=== PATIENT | female | born 1990 | race Caucasian/White ===

== ENCOUNTER 2018-06-06 02:49 | Emergency (ER) | payer OTHER, SELFPAY ==
[2018-06-06 02:54] VITALS: BP 142/93; PULSE 96; RESP 18; TEMP 36.5; O2SAT 96
--- NOTE | 2018-06-06 02:58 | ED.SOB ---
HPI - SOB/Dyspnea General Chief Complaint: Shortness of Breath/Dyspnea Stated Complaint: CANT BREATHE Time Seen by Provider: 06/06/18 02:49 Source: patient Mode of arrival: ambulatory Limitations: no limitations History of Present Illness 27-year-old female with a history of asthma who states she has not been admitted to the hospital secondary to asthma since she was a kid states she has had for the past couple days upper respiratory tract infection like symptoms. She states that for the past day or so she has had problems breathing. Has been using her albuterol at home without much improvement here because she feels like her breathing is worsening. Related Data Home Medications Medication Instructions Recorded Confirmed oxycodone-acetaminophen #0 01/16/18 Previous Rx's Medication Instructions Recorded azithromycin [Zithromax] 250 mg PO SEE INSTRUCTIONS #6 tab 07/14/16 omeprazole 40 mg PO QAM #14 cap 03/05/17 dexamethasone 4 mg PO .once #3 tab 06/06/18 Allergies Allergy/AdvReac Type Severity Reaction Status Date / Time amoxicillin [AMOXICILLIN] Allergy Intermediate Verified 06/06/18 02:59 Review of Systems Constitutional Denies fever(s) ENT Ears, Nose, Mouth, and Throat: Denies throat swelling Cardiovascular Denies chest pain and Reports dyspnea Respiratory Reports cough, Reports dyspnea and Reports wheezing Gastrointestinal Gastrointestinal: Denies abdominal pain Musculoskeletal Denies myalgias and Denies arthralgias Integumentary/Breasts Denies rash Allergic/Immunologic Denies urticaria, Denies throat swelling and Reports wheezing PFSH Medical History Asthma (Acute) Surgical History No pertinent past surgical history (Acute) Social History Smoking Status: Never smoker Exam Initial Vital Signs Initial Vital Signs: Vital Signs Temperature 97.7 F 06/06/18 02:54 Pulse Rate 96 H 06/06/18 02:54 Respiratory Rate 18 06/06/18 02:54 Blood Pressure 142/93 H 06/06/18 02:54 Pulse Oximetry 96 06/06/18 02:54 Const General: cooperative, healthy appearing, comfortable, well developed, well groomed and No acute distress Orientation: alert, awake and oriented x3 Resp Effort & Inspection: cough and labored Auscultation: wheezes Cardio Rate: regular rate Rhythm: regular rhythm Skin Lesions: no lesions Rashes: no rashes Neuro General: alert, awake and oriented x3 Extrem General: normal to inspection and capillary refill normal Psych Appearance: grossly normal and well kempt Course Orders Ordered: Discontinued Medications Albuterol/Ipratropium (Duoneb) 3 ml INH NOW ONE Stop: 06/06/18 02:54 Last Admin: 06/06/18 03:09 Dose: 3 ml Albuterol/Ipratropium (Duoneb) 3 ml INH NOW ONE Stop: 06/06/18 02:54 Last Admin: 06/06/18 03:09 Dose: 3 ml Albuterol/Ipratropium (Duoneb) 3 ml INH NOW ONE Stop: 06/06/18 03:37 Last Admin: 06/06/18 03:41 Dose: 3 ml Dexamethasone (Decadron) 10 mg PO NOW ONE Stop: 06/06/18 02:54 Last Admin: 06/06/18 03:04 Dose: 10 mg Vital Signs - 8 hr 06/06/18 02:54 06/06/18 03:26 Temperature 97.7 F Pulse Rate 96 H 89 Respiratory Rate 18 16 Blood Pressure 142/93 H Pulse Oximetry 96 94 MDM - SOB/Dyspnea MDM Narrative Medical decision making narrative: Patient received multiple nebs and Decadron here in the emergency department with improvement of her symptoms. Will hold on her chest x-ray. Patient states she feels much better. She has her albuterol at home and does not need any refills. Will give another prescription for Decadron to taking 36 hr. She was given return precautions. She expressed understanding and agreement with plan. Discharge Plan Departure Patient Disposition: Home Clinical Impression: Asthma with exacerbation Instructions: Asthma (Alternative Therapy), Asthma -- Adult Activity Restrictions/Additional Instructions: Continue to take your allergy medications as directed. You were given a prescription for Decadron that needs to be taken 36 hr after discharge from the emergency department. Return to the emergency department for any new or worsening symptoms Prescriptions: New dexamethasone 4 mg tablet 4 mg PO .once Qty: 3 RF: 0 No Action azithromycin [Zithromax] 250 MG tablet 250 mg PO SEE INSTRUCTIONS Qty: 6 RF: 0 omeprazole 40 MG capsule,delayed release(DR/EC) 40 mg PO QAM Qty: 14 RF: 0 oxycodone-acetaminophen 7.5 MG/325 MG tablet Qty: 0 RF: 0
[2018-06-06] MEDS: DEXAMETHASONE 10 MG/ML VIAL PO (03:04)
[2018-06-06] MEDS: ALBUTEROL/IPRATROPIUM 3 ML AMPUL INH ×3 (03:09→03:41)
[2018-06-06 03:26] VITALS: PULSE 89; RESP 16; O2SAT 94
[2018-06-06 04:05] VITALS: BP 139/78; PULSE 98; RESP 18; O2SAT 96
[2018-06-06 05:20] VITALS: BP 134/74; PULSE 92; RESP 18; TEMP 36.6; O2SAT 95
--- NOTE | 2018-06-06 05:21 | PC.NURSE ---
FEELS BETTER,WANTS TO GO HOME.
== END 2018-06-06 05:20 | disposition home or self-care (01) ==
PROVIDERS: Emergency Provider Emergency Medicine
DX: J45.909 Unspecified asthma, uncomplicated (principal)
CPT/HCPCS: 94150; 94640; 99282; 99284; J1100

== ENCOUNTER 2019-01-20 18:13 | Emergency (ER) | payer OTHER, SELFPAY ==
[2019-01-20 18:19] VITALS: BP 121/71; PULSE 69; RESP 16; TEMP 36.8; O2SAT 98
--- NOTE | 2019-01-20 20:11 | ED.EAR ---
HPI - Ear Problem <PERLA Berkowitz - Last Filed: 01/20/19 21:35> General Chief complaint: Ear Stated complaint: RT EAR PAIN Time Seen by Provider: 01/20/19 18:47 Source: patient Mode of arrival: ambulatory Limitations: no limitations History of Present Illness HPI Narrative: Healthy 28-year-old female that is nonsmoker for complaint of pain into her right ear that started earlier today. She also reports that later in the day after the pain started she started having drainage to the right ear. She denies any fevers or chills. She does report that last week she did have cold-like symptoms. she denies any sinus congestion or rhinorrhea at this time frame. She denies any trauma to the right ear. No other concerns or complaints at this time frame. MD Complaint: ear pain and ear discharge Related Data Home Medications Medication Instructions Recorded Confirmed oxycodone-acetaminophen #0 01/16/18 Previous Rx's Medication Instructions Recorded azithromycin [Zithromax] 250 mg PO SEE INSTRUCTIONS #6 tab 07/14/16 omeprazole 40 mg PO QAM #14 cap 03/05/17 dexamethasone 4 mg PO .once #3 tab 06/06/18 doxycycline hyclate 100 mg PO BID #13 tab 01/20/19 Allergies Allergy/AdvReac Type Severity Reaction Status Date / Time amoxicillin [AMOXICILLIN] Allergy Intermediate Verified 06/06/18 02:59 Review of Systems <PERLA Berkowitz - Last Filed: 01/20/19 21:35> Constitutional Denies chills, Denies fever(s), Denies lethargy and Denies weakness Eyes Denies change in vision, Denies eye discharge, Denies irritation and Denies loss of vision ENT Ears, Nose, Mouth, and Throat: Reports ear discharge, Reports otalgia and Denies throat swelling Cardiovascular Denies chest pain, Denies irregular heart rhythm, Denies lightheadedness, Denies palpitations and Denies orthopnea Respiratory Denies wheezing Gastrointestinal Gastrointestinal: Denies abdominal pain, Denies change in bowel habits, Denies diarrhea, Denies nausea and Denies vomiting Neurologic Denies loss of vision and Denies weakness Endocrine Denies palpitations Hematologic/Lymphatic Denies easy bruising Allergic/Immunologic Denies urticaria, Denies throat swelling and Denies wheezing PFSH <PERLA Berkowitz - Last Filed: 01/20/19 21:35> Medical History Asthma (Acute) Surgical History No pertinent past surgical history (Acute) Social History Smoking Status: Never smoker Social History Smoking Status: Never smoker Exam <PERLA Berkowitz - Last Filed: 01/20/19 21:35> Initial Vital Signs Initial Vital Signs: Vital Signs Temperature 98.2 F 01/20/19 18:19 Pulse Rate 69 01/20/19 18:19 Respiratory Rate 16 01/20/19 18:19 Blood Pressure 121/71 01/20/19 18:19 Pulse Oximetry 98 01/20/19 18:19 Const General: cooperative and well developed Nutritional Appearance: well nourished Orientation: alert, awake, oriented x3 and not confused HENMT Ears: right TM abnormal (Right tympanic membrane is erythematous with rupture) and TM normal on the left Mouth: oral mucosae normal and moist mucous membranes Eyes Conjunctivae: conjunctivae normal Sclera: sclerae normal Pupils: PERRL EOM: EOM intact bilaterally Resp Effort & Inspection: normal respiratory effort, able to speak in complete sentences, no respiratory distress and no use of accessory muscles Auscultation: clear to auscultation bilaterally, no rales, no rhonchi and no wheezes Cardio Rate: regular rate Rhythm: regular rhythm Heart Sounds: no click, no gallops, no murmurs and no rubs Pulses: normal peripheral pulses Skin General: no rashes or lesions noted, No jaundice and No petechiae Neuro General: alert, oriented x3, gait normal and no focal motor deficits Speech: speech normal <Sky Mujica DO - Last Filed: 01/21/19 02:10> Initial Vital Signs Initial Vital Signs: Vital Signs Temperature 98.2 F 01/20/19 18:19 Pulse Rate 69 01/20/19 18:19 Respiratory Rate 16 01/20/19 18:19 Blood Pressure 121/71 01/20/19 18:19 Pulse Oximetry 98 01/20/19 18:19 Course <PERLA Berkowitz - Last Filed: 01/20/19 21:35> Orders Ordered: Discontinued Medications Amoxicillin/Clavulanate Potassium (Augmentin 875-125 Mg) 1 tab PO NOW ONE Stop: 01/20/19 20:22 Last Admin: 01/20/19 20:31 Dose: Not Given Doxycycline Hyclate (Vibramycin) 100 mg PO NOW ONE Stop: 01/20/19 20:32 Last Admin: 01/20/19 20:33 Dose: 100 mg Vital Signs - 8 hr 01/20/19 18:19 01/20/19 20:40 Temperature 98.2 F Pulse Rate 69 68 Respiratory Rate 16 18 Blood Pressure 121/71 Blood Pressure [Right Arm] 132/73 Pulse Oximetry 98 97 <Sky Mujica DO - Last Filed: 01/21/19 02:10> Orders Ordered: Discontinued Medications Amoxicillin/Clavulanate Potassium (Augmentin 875-125 Mg) 1 tab PO NOW ONE Stop: 01/20/19 20:22 Last Admin: 01/20/19 20:31 Dose: Not Given Doxycycline Hyclate (Vibramycin) 100 mg PO NOW ONE Stop: 01/20/19 20:32 Last Admin: 01/20/19 20:33 Dose: 100 mg Vital Signs - 8 hr 01/20/19 18:19 01/20/19 20:40 Temperature 98.2 F Pulse Rate 69 68 Respiratory Rate 16 18 Blood Pressure 121/71 Blood Pressure [Right Arm] 132/73 Pulse Oximetry 98 97 Medical Decision Making <PERLA Berkowitz - Last Filed: 01/20/19 21:35> [facility] Narrative Additional Information: Sinus symptoms presents as right otitis media with spontaneous rupture. She is placed on doxycycline due to amoxacillin allergies. She is referred to Ear Nose and Throat for follow-up to ensure good resolution. Raxl-alj-[id number] Tylenol or Motrin as needed for any discomfort. Plenty of fluids. For any worsening symptoms return to the emergency room. Discharge Plan Departure Patient Disposition: Home Clinical Impression: Acute suppur right otitis media w/spontan rupture of tympanic membrane Qualifiers: Recurrence: recurrent Qualified Code(s): H66.014 - Acute suppurative otitis media with spontaneous rupture of ear drum, recurrent, right ear Discharge Date/Time: 01/20/19 20:46 Interventions: ED Discharge Assessment Last Done: 01/20/19 20:45 Instructions: DI for Tympanic Membrane Perforation-Adult, DI for Middle Ear Infection-Adult Activity Restrictions/Additional Instructions: Signs and symptoms presents as otitis media with rupture of the eardrum. You're placed on antibiotic called doxycycline use as directed. Use exst-mai-[id number] Tylenol Motrin as needed for any discomfort. Follow up with primary care provider. Referred to ENT for further evaluation to ensure good resolution of her symptoms. Call the office at number provided to schedule follow-up appointment. For any worsening symptoms return to the emergency room. Prescriptions: New doxycycline hyclate 100 mg tablet 100 mg PO BID Qty: 13 RF: 0 No Action azithromycin [Zithromax] 250 MG tablet 250 mg PO SEE INSTRUCTIONS Qty: 6 RF: 0 omeprazole 40 MG capsule,delayed release(DR/EC) 40 mg PO QAM Qty: 14 RF: 0 oxycodone-acetaminophen 7.5 MG/325 MG tablet Qty: 0 RF: 0 dexamethasone 4 mg tablet 4 mg PO .once Qty: 3 RF: 0 Referrals: Antoni Laboy MD [Physician] - Glynn Ricardo MD [Primary Care Provider] - <Sky Mujica DO - Last Filed: 01/21/19 02:10> Cosign ED Attending Cosignature Attestation: I was immediately available in the department for consultation. Documentation has been reviewed. I agree with assessment and plan.
[2019-01-20] MEDS: DOXYCYCLINE HYCLATE 100 MG TABLET PO (20:33)
[2019-01-20 20:40] VITALS: BP 132/73; PULSE 68; RESP 18; O2SAT 97
== END 2019-01-20 20:46 | disposition home or self-care (01) ==
PROVIDERS: Emergency Provider Nurse Practitioner Family
DX: H66.014 Acute suppurative otitis media with spontaneous rupture of ear drum, recurrent, right ear (principal)
CPT/HCPCS: 99282; 99283

== ENCOUNTER → 2019-06-12 08:52 | Outpatient (CLI) | payer OTHER, SELFPAY ==
--- NOTE | 2019-06-12 | DI.US.S_ITS ---
PROCEDURE: US OB TRANSVAGINAL INDICATIONS: INITIAL SIZING AND DATING OUTSIDE/PRIOR DATING DATA: Last menstrual period (LMP): Unknown. LMP-based estimated date of delivery (FIFI): Unknown. First dating scan (date and location): This examination. Estimated date of delivery (FIFI) from first dating scan: 02/06/20. TECHNIQUE: Real-time scanning was performed of the fetus, with image documentation. Endovaginal scanning: Performed. No transabdominal scanning per clinician request COMPARISON: None. FINDINGS: A single living intrauterine gestation is present. Single living intrauterine fetus with crown-rump length measuring 0.3 cm, 5 weeks 6 days Yolk sac visualized heart rate: 115 beats per minute. IMPRESSION: Single living intrauterine fetus with a gestational age of 5 weeks and 6 days by today's ultrasound measurements corresponding to an FIFI of 02/06/20. Dictated by: Andres Puentes M.D. on 06/12/2019 at 10:31 Approved by: Andres Puentes M.D. on 06/12/2019 at 11:28
== END ==
PROVIDERS: Visit Provider Obstetrics & Gynecology Reproductive Endocrinology
DX: Z34.01 Encounter for supervision of normal first pregnancy, first trimester (principal)
CPT/HCPCS: 76817

== ENCOUNTER → 2019-06-18 07:09 | Outpatient (CLI) | payer OTHER, SELFPAY ==
--- NOTE | 2019-06-18 | DI.US.S_ITS ---
PROCEDURE: US OB <= 14 WEEKS FETUS INDICATIONS: IVF FOLLOW-UP OUTSIDE/PRIOR DATING DATA: Last menstrual period (LMP): IVF transfer. LMP-based estimated date of delivery (FIFI): 02/06/20. First dating scan (date and location): 06/12/19. Estimated date of delivery (FIFI) from first dating scan: 02/06/20. TECHNIQUE: Real-time scanning was performed of the fetus and maternal pelvic organs, with image documentation. Endovaginal scanning was also performed to better visualize the fetus and maternal ovaries. COMPARISON: None. FINDINGS: Embryo: [place]-rump length measures 7 mm corresponding to 6 weeks 4 days. Heart rate measured 123 beats per minute. Measurement variability in dating: +/- 4 weeks by LMP, +/- 7 days by mean sac diameter (use before 6 weeks gestation if crown-rump length not able to be measured), +/- 5 days by crown-rump length (up to 8 weeks 6 days gestation), +/- 7 days by crown-rump length (up to 13 weeks 6 days gestation). Maternal organs: Ovaries within normal limits. Limited images through the kidneys demonstrate no hydronephrosis. IMPRESSION: 6 week 4 day single living intrauterine . Dictated by: Everett Lamb [facility] Interpreted: Lesly Ruiz MD on 06/19/2019 at 16:18 Approved by: Lesly Ruiz M.D. on 06/19/2019 at 17:48
== END ==
PROVIDERS: Visit Provider Obstetrics & Gynecology Reproductive Endocrinology
DX: Z34.91 Encounter for supervision of normal pregnancy, unspecified, first trimester (principal); Z3A.01 Less than 8 weeks gestation of pregnancy
CPT/HCPCS: 76817

== ENCOUNTER → 2019-06-26 07:13 | Outpatient (CLI) | payer OTHER, SELFPAY ==
--- NOTE | 2019-06-26 | DI.US.S_ITS ---
PROCEDURE: US OB TRANSVAGINAL INDICATIONS: SUPERVISION OF ELDERLY PRIMAGRAVIDA OUTSIDE/PRIOR DATING DATA: Last menstrual period (LMP): Unknown LMP-based estimated date of delivery (FIFI): 02/06/20 based on IVF transfer date. First dating scan (date and location): 06/12/19. Estimated date of delivery (FIFI) from first dating scan: 02/06/20. TECHNIQUE: Real-time scanning was performed of the fetus, with image documentation. COMPARISON: [facility], , OB TRANSVAGINAL, 06/12/2019, 9:26. FINDINGS: A single living intrauterine gestation is present. [place]-rump length measures 1.5 cm. heart rate: 165 beats per minute. Estimated gestational age from initial scan: 7 weeks 6 days Estimated gestational age from current scan: 7 weeks 6 days There is a small focus of subchorionic hemorrhage measuring 8 x 3 mm. IMPRESSION: 1. Single intrauterine with ultrasound gestational age of 7 weeks 6 days corresponding to FIFI of 02/06/20. 2. Small subchorionic hemorrhage as above. Dictated by: Lesly Ruiz M.D. on 06/26/2019 at 10:57 Approved by: Lesly Ruiz M.D. on 06/26/2019 at 11:00
== END ==
PROVIDERS: Visit Provider Obstetrics & Gynecology Reproductive Endocrinology
DX: O09.511 Supervision of elderly primigravida, first trimester (principal); Z3A.01 Less than 8 weeks gestation of pregnancy
CPT/HCPCS: 76817

== ENCOUNTER 2019-10-21 12:34 | Emergency (ER) | payer OTHER, SELFPAY ==
[2019-10-21 12:47] VITALS: BP 139/67; PULSE 96; RESP 18; TEMP 36.6; O2SAT 100
[2019-10-21] MEDS: ALBUTEROL/IPRATROPIUM 3 ML AMPUL INH (13:21)
--- NOTE | 2019-10-21 13:26 | ED_ITS ---
HPI - URI/Sore Throat <PERLA Cornelius - Last Filed: 10/21/19 23:06> General Chief Complaint: Upper Respiratory Symptoms Stated Complaint: asthma, cough Time Seen by Provider: 10/21/19 12:57 Source: patient Mode of arrival: Ambulatory Limitations: no limitations History of Present Illness HPI Narrative: This is 29-year-old female, nonsmoker, who presents to ED with 5 week duration of nonproductive cough. Patient reports she was having asthma attack last night and had to use rescue inhaler 2 puffs every hour for a couple of times. Patient reports chest tightness and short of breath. Patient denies being exposed to fireworks, smokes. Patient was seen at walk-in clinic a couple of weeks ago and was treated with Z-Drew for 5 day course for bronchitis. Patient denies fever, chills, nausea or vomiting. Patient does not use nebulizer at home. LMP unsure and reports 24 week EGA at this time and denies vaginal bleeding or abdominal discomfort at this time. Related Data Home Medications Medication Instructions Recorded Confirmed oxycodone-acetaminophen #0 01/16/18 Previous Rx's Medication Instructions Recorded azithromycin [Zithromax] 250 mg PO SEE INSTRUCTIONS #6 tab 07/14/16 omeprazole 40 mg PO QAM #14 cap 03/05/17 dexamethasone 4 mg PO .once #3 tab 06/06/18 doxycycline hyclate 100 mg PO BID #13 tab 01/20/19 prednisone 40 mg PO DAILY 4 Days #8 tab 10/21/19 Allergies Allergy/AdvReac Type Severity Reaction Status Date / Time amoxicillin [AMOXICILLIN] Allergy Intermediate Verified 06/06/18 02:59 Review of Systems <PERLA Cornelius - Last Filed: 10/21/19 23:06> Review of Systems Narrative: General: Denies fever, chills, fatigue, malaise, sweats. HEENT: Denies sinus pain, ear pain, sore throat, difficulty swallowing, dizziness. Respiratory: See HPI Cardiovascular: Denies chest pain, palpitations, orthopnea, edema. Gastrointestinal: Denies nausea, vomiting, abdominal pain, diarrhea, constipation, melena. : Denies dysuria, frequency, incontinence, hematuria, urinary retention. Musculoskeletal: Denies weakness, joint pain or bony pain. Skin: Denies rash, skin lesions, or other. Neurologic: Denies weakness, headache, numbness, change in speech, confusion, seizures, incoordination. Psychiatric: No concerning psychosocial issues. 12-point review of systems is negative except for those stated above. Patient History <PERLA Cornelius - Last Filed: 10/21/19 23:06> Medical History Asthma (Acute) Surgical History History of (Acute) History of tonsillectomy (Acute) Social History Smoking Status: Never smoker Smoking Status: Never smoker alcohol intake frequency: a few times a month Substance Use Type: does not use Exam <PERLA Cornelius - Last Filed: 10/21/19 23:06> Narrative Exam Narrative: GEN: Alert, oriented x 3, well appearing and nourished, and in no acute distress. Head: Normal cephalic, atraumatic. No scalp or temporal tenderness, palpable mass or rash. EYES: Pupils are equal, round, and reactive to light and accommodation. Extraocular muscles are intact bilaterally. There is no subconjunctival hemorrhage, exudate and sclera non-icteric. ENT: Bilateral auditory canals and tympanic membranes clear. Hearing grossly intact. Nose without bleeding, purulent discharge or deviation. Facial sinuses nontender to palpate. Mucous membrane moist, no mucosal lesion. Throat without erythema, tonsillar hypertrophy or exudate. Uvula in midline, airway patent. Neck: Trachea in midline. No JVD, non-tender without lymphadenopathy. No masses or thyroid megaly. Supple, non-tender and no meningeal signs. CARDIAC: Normal regular rate and rhythm without murmurs, gallops, or rubs. No chest wall tenderness. No peripheral edema, cyanosis or pallor. Capillary refill is less than 2 seconds. RESPIRATORY: Lungs faint expiratory wheezing in all lobes to auscultate. Nonproductive cough, no rales, or rhonchi. No stridor, respiratory distress, increase work of breathing, or accessary muscle used. ABD: Abdomen soft, nontender and non-distended. No guarding or rebound tenderness to palpate. Bowel sounds are normal in all 4 quadrants. There is no palpable masses or organomegaly. EXT: Full painless ROM of all extremities with no loss of sensation, strength, effusion or edema. SKIN: Warm, dry, normal color for patient. No erythema, lesions or rash over visible areas. BACK: Nontender without deformity or crepitance. No flank tenderness. NEUROLOGICAL: Alert and oriented to place, time and person. Sensation and motor function intact bilaterally. No facial droops, dysphasia. PSYCHIATRIC: Good judgement and reason, without hallucinations, abnormal affect or abnormal behaviors during the examination. Initial Vital Signs Initial Vital Signs: Vital Signs Temperature 97.9 F 10/21/19 12:47 Pulse Rate 96 H 10/21/19 12:47 Respiratory Rate 18 10/21/19 12:47 Blood Pressure 139/67 10/21/19 12:47 Pulse Oximetry 100 10/21/19 12:47 <Madeline Parker DO - Last Filed: 10/22/19 16:26> Initial Vital Signs Initial Vital Signs: Vital Signs Temperature 97.9 F 10/21/19 12:47 Pulse Rate 96 H 10/21/19 12:47 Respiratory Rate 18 10/21/19 12:47 Blood Pressure 139/67 10/21/19 12:47 Pulse Oximetry 100 10/21/19 12:47 Scores <PERLA Cornelius - Last Filed: 10/21/19 23:06> GCS Albert coma scale eye opening: Spontaneous [place] coma scale verbal response: Orientated [place] coma scale motor response: Obey commands [place] coma scale total score: 15 Course <PERLA Cornelius - Last Filed: 10/21/19 23:06> Orders Ordered: Discontinued Medications Albuterol (Ventolin) 2.5 mg INH NOW ONE Stop: 10/21/19 13:37 Last Admin: 10/21/19 13:44 Dose: 2.5 mg Documented by: SHELBY Albuterol/Ipratropium (Duoneb) 3 ml INH NOW ONE Stop: 10/21/19 13:11 Last Admin: 10/21/19 13:21 Dose: 3 ml Documented by: SHELBY Prednisone (Deltasone) 40 mg PO NOW ONE Stop: 10/21/19 13:11 Last Admin: 10/21/19 13:47 Dose: 40 mg Documented by: LIZAERDAYA Vital Signs Vital signs: Vital Signs - 8 hr 10/21/19 12:47 Temperature 97.9 F Pulse Rate 96 H Respiratory Rate 18 Blood Pressure 139/67 Pulse Oximetry 100 <Madeline Parker DO - Last Filed: 10/22/19 16:26> Orders Ordered: Discontinued Medications Albuterol (Ventolin) 2.5 mg INH NOW ONE Stop: 10/21/19 13:37 Last Admin: 10/21/19 13:44 Dose: 2.5 mg Documented by: RSELFRIDCASANDRA Albuterol/Ipratropium (Duoneb) 3 ml INH NOW ONE Stop: 10/21/19 13:11 Last Admin: 10/21/19 13:21 Dose: 3 ml Documented by: RSELFRIDGE Prednisone (Deltasone) 40 mg PO NOW ONE Stop: 10/21/19 13:11 Last Admin: 10/21/19 13:47 Dose: 40 mg Documented by: MARIA TERESA Vital Signs Vital signs: Vital Signs - 8 hr 10/21/19 12:47 Temperature 97.9 F Pulse Rate 96 H Respiratory Rate 18 Blood Pressure 139/67 Pulse Oximetry 100 MDM - URI/Sore Throat <PERLA Cornelius - Last Filed: 10/21/19 23:06> Differential Diagnosis Differential diagnosis: Likely upper respiratory infection, bronchitis and other (Asthma exacerbation) Medical Records Attestation: I reviewed the patient's medical records. MDM Narrative Medical decision making narrative: This is a 29-year-old female who currently and in 24wk EGA presents to ED with cough for last 5 weeks without fever, chills, nausea or vomiting. Patient reports she was recently treated with azithromycin for bronchitis and had experienced with asthma symptoms last night. She had to use her inhaler 2 puffs every hour for 2-3 times last night due to frequent cough, wheezing, short of breath, chest tightness. She had expiratory faint wheezing in throughout all lobes. Patient was treated with DuoNeb and albuterol nebulizer, prednisone 40 mg while in ED. patient reports breathing got easier after the treatment although lung sounds had remaining whe ezing on the left side and clear on the right side. Breathing was easier with O2 sat at 98% in room air. Patient discharged to home with a 4 day course of prednisone 40 mg daily and return precautions were discussed with the patient and advised to follow up with her primary care physician next couple of days. Patient verbalized understanding and agrees with the treatment plan. Discharge Plan Departure Patient Disposition: Home Clinical Impression: Asthma exacerbation Qualifiers: Asthma severity: unspecified severity Asthma persistence: unspecified Qualified Code(s): J45.901 - Unspecified asthma with (acute) exacerbation Discharge Date/Time: 10/21/19 14:33 Instructions: DI for Asthma -- Adult Activity Restrictions/Additional Instructions: You have been diagnosed with [asthma exacerbation. You were treated with neb treatments and oral prednisone while in ED.]. What to do: *Take your medications as directed. Please take prednisone 40 mg daily for next 4 more days. This has been transmitted to [facility] in [place]. You can use your albuterol inhaler 2 puffs q.4 hours as needed for short of breath, wheezing, chest tightness, frequent coughing. *Follow up with your primary care provider in 2-3 days, call for an appointment. Let them know you were seen in the ED and that we asked you to be seen in follow up. *Return to ED if you have any new, worsening, or concerning symptoms, such as [fever, chest pain, breathing difficulty, unable to tolerate fluids, or any acute concerns]. Prescriptions: New prednisone 20 mg tablet 40 mg PO DAILY 4 Days Qty: 8 RF: 0 No Action azithromycin [Zithromax] 250 MG tablet 250 mg PO SEE INSTRUCTIONS Qty: 6 RF: 0 omeprazole 40 MG capsule,delayed release(DR/EC) 40 mg PO QAM Qty: 14 RF: 0 oxycodone-acetaminophen 7.5 MG/325 MG tablet Qty: 0 RF: 0 doxycycline hyclate 100 mg tablet 100 mg PO BID Qty: 13 RF: 0 dexamethasone 4 mg tablet 4 mg PO .once Qty: 3 RF: 0 Referrals: Glynn Ricardo MD [Primary Care Provider] -
[2019-10-21 13:44] VITALS: RESP 18
[2019-10-21] MEDS: ALBUTEROL 2.5 MG/3 ML NEB (ADULT) INH (13:44)
[2019-10-21] MEDS: predniSONE 20 MG TABLET 40 MG PO (13:47)
[2019-10-21 14:00] VITALS: BP 127/65; PULSE 102; O2SAT 96
[2019-10-21 14:30] VITALS: PULSE 89; RESP 22; O2SAT 98
== END 2019-10-21 14:33 | disposition home or self-care (01) ==
PROVIDERS: Emergency Provider Nurse Practitioner Family
DX: J45.901 Unspecified asthma with (acute) exacerbation (principal)
CPT/HCPCS: 94150; 94640; 99282; 99283; J7613

== ENCOUNTER 2019-11-20 12:41 | Emergency (ER) | payer OTHER, SELFPAY ==
[2019-11-20 13:10] VITALS: BP 140/69; PULSE 99; RESP 16; TEMP 36.9; O2SAT 99; BMI 34.7
--- NOTE | 2019-11-20 13:47 | ED.CHESTPAIN ---
HPI - Chest Pain General Chief Complaint: Chest Pain Stated Complaint: 28 wks preg, Chest pain and elevated HR Time Seen by Provider: 11/20/19 13:36 Source: patient Mode of arrival: Family Vehicle Limitations: no limitations History of Present Illness HPI narrative: CC: Chest pain HPI: The patient is a 29-year-old female who is G3, P3, AP 0. She does not know when her last menstrual period was. She is 28 weeks . 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 She points to the specific area. It hurts to take a deep breath in that location. She has had no fall or injury. The pain and discomfort is 3 to 4/10 in intensity. It does not radiate to her neck jaw back shoulder or arm. She has had no cough no fall or injury. She denies any back pain. She has had no significant cough shortness of breath nausea or vomiting any change in bowel habits or diarrhea. She has had no dizziness syncope or lightheadedness. The pain is constant. Intermittently she has rapid heart rate. She denies a history of phlebitis. She does not smoke to tobacco drink alcohol anymore. She is a social drinker. She denies a history of myocardial infarction congestive heart failure congenital heart disease heart murmur hypertension diabetes mellitus. She has had no toxemia no gestational hypertension which is or diabetes. Related Data Home Medications Medication Instructions Recorded Confirmed albuterol sulfate [ProAir HFA] 2 puff INHALATION Q4H PRN 11/20/19 Allergies Allergy/AdvReac Type Severity Reaction Status Date / Time amoxicillin [AMOXICILLIN] Allergy Intermediate Verified 06/06/18 02:59 Review of Systems Review of Systems ROS Unobtainable: All systems reviewed & are unremarkable except as noted in HPI and below Patient History Medical History Asthma (Acute) Surgical History History of (Acute) History of tonsillectomy (Acute) Social History Smoking Status: Never smoker Smoking Status: Never smoker alcohol intake frequency: a few times a month Substance Use Type: does not use Exam Narrative Exam Narrative: PHYSICAL EXAM: CONSTITUTIONAL: Awake, Alert, Oriented, Coherent, Cooperative in NAD. Does not appear toxic or ill. The patient is moderately obese. HEAD: AT/NC EENT: PERRL, FROM of eyes, no discharge, no nystagmus Oral mucosa is moist and pink, posterior pharynx is without erythema or exudate. NECK: Supple, no obvious JVD, Trachea is midline without stridor, no palpable LN SPINE: No gross deformity, no palpable tenderness of the cervical, thoracic, lumbar or sacral spine. No CVA tenderness. THORAX: No deformity, retractions, subcutaneous air or crepitice. The patient has some mild tenderness to palpation along the upper left costal sternal border. LUNGS: Clear with symmetrical breath sounds and without respiratory distress HEART: Normal heart tones, regular rhythm and rate without murmur. ABDOMEN: Soft, non-tender, normal bowel sounds without guarding, rebound, rigidity or palpable mass. Gravid uterus extending up to the umbilicus. EXTREMITIES: No edema, cyanosis, deformity or tenderness. SKIN: No rash, bruising, petechiae or purpura. NEURO: Awake, alert, oriented, conversive, cranial nerves II-XII are symmetrical and normal, moves all 4 extremities and is ambulatory Initial Vital Signs Initial Vital Signs: Vital Signs Temperature 98.4 F 11/20/19 13:10 Pulse Rate 99 H 11/20/19 13:10 Respiratory Rate 16 11/20/19 13:10 Blood Pressure 140/69 11/20/19 13:10 Pulse Oximetry 99 11/20/19 13:10 Course Orders Ordered: ED Orders 11/20/19 13:18 EKG-12 Lead Stat 11/20/19 13:50 XR chest 1V Stat 11/20/19 13:55 Complete Blood Count AUTO DIFF Stat Comprehensive Metabolic Panel Stat Erythrocyte Sedimentation Rate Stat Partial Thromboplastin Time Stat Prothrombin Time INR Stat Troponin & CK Cardiac Panel Stat Discontinued Medications Acetaminophen (Tylenol) 975 mg PO NOW ONE Stop: 11/20/19 15:48 Last Admin: 11/20/19 16:07 Dose: 975 mg Documented by: HANNAH Vital Signs Vital signs: Vital Signs - 8 hr 11/20/19 14:21 11/20/19 16:13 Pulse Rate 91 H 88 Respiratory Rate 18 20 Blood Pressure 110/62 Blood Pressure [Left Arm] 118/57 L Pulse Oximetry 99 100 MDM - Chest Pain Lab Data Result diagrams: 11/20/19 13:55 11/20/19 13:55 Labs: Lab Results 11/20/19 11/20/19 11/20/19 Range/Units 13:55 13:55 13:55 WBC 7.7 (4.5-11.0) X10^3/uL RBC 3.68 L (4.0-5.2) X10^6/uL Hgb 10.8 L (12.0-16.0) g/dL Hct 31.8 L (36-46) % MCV 86.5 (80-100) fL MCH 29.3 (26-34) PG MCHC 33.8 (30-36) % RDW 12.5 (11.6-14.8) % Plt Count 196 (150-400) X10^3/uL Neut % (Auto) 65.5 (50-75) % Lymph % (Auto) 22.5 L (25-40) % Burke % (Auto) 9.6 (3-14) % Eos % (Auto) 2.0 (2-4) % Baso % (Auto) 0.4 (0-2) % Neut # (Auto) 5100 (0914-0865) /uL Lymph # (Auto) 1700 (9798-4407) /uL Burke # (Auto) 700 (0-900) /uL Eos # (Auto) 200 (0-450) /uL Baso # (Auto) 0 (0-100) /uL ESR (0-20) MM/HR PT 11.3 (10.1-12.7) SECONDS INR 1.0 (0.9-1.3) APTT 26 L (26.4-36.2) SECONDS Sodium 136 L (137-145) mmol/L Potassium 3.9 (3.4-5.1) mmol/L Chloride 105 (98-107) mmol/L Carbon Dioxide 21 L (22-32) mmol/L BUN 9 (7-17) mg/dL Creatinine 0.60 (0.52-1.04) mg/dL Estimated GFR > 60.0 (>60) mL/min BUN/Creatinine Ratio 15.0 (6-22) Glucose 100 (70-100) mg/dL Calcium 9.2 (8.4-10.2) mg/dL Total Bilirubin 0.4 (0.2-1.3) mg/dL AST 18 (14-36) IU/L ALT 19 (<35) IU/L Alkaline Phosphatase 84 (38-126) U/L Total Creatine Kinase 79 (30-135) U/L CK-MB (CK-2) TNP CK-MB (CK-2) Rel Index TNP Troponin I < 0.012 (0.01-0.034) ng/mL Total Protein 6.8 (6.3-8.2) g/dL Albumin 3.6 (3.5-5.0) g/dL Globulin 3.2 (1.7-4.1) g/dL Albumin/Globulin Ratio 1.1 (1.0-2.8) Blood Type 11/20/19 11/20/19 11/20/19 Range/Units 13:55 13:55 13:55 WBC (4.5-11.0) X10^3/uL RBC (4.0-5.2) X10^6/uL Hgb (12.0-16.0) g/dL Hct (36-46) % MCV (80-100) fL MCH (26-34) PG MCHC (30-36) % RDW (11.6-14.8) % Plt Count (150-400) X10^3/uL Neut % (Auto) (50-75) % Lymph % (Auto) (25-40) % Burke % (Auto) (3-14) % Eos % (Auto) (2-4) % Baso % (Auto) (0-2) % Neut # (Auto) (3229-9957) /uL Lymph # (Auto) (3640-9048) /uL Burke # (Auto) (0-900) /uL Eos # (Auto) (0-450) /uL Baso # (Auto) (0-100) /uL ESR 41 H (0-20) MM/HR PT (10.1-12.7) SECONDS INR (0.9-1.3) APTT (26.4-36.2) SECONDS Sodium (137-145) mmol/L Potassium (3.4-5.1) mmol/L Chloride (98-107) mmol/L Carbon Dioxide (22-32) mmol/L BUN (7-17) mg/dL Creatinine (0.52-1.04) mg/dL Estimated GFR (>60) mL/min BUN/Creatinine Ratio (6-22) Glucose (70-100) mg/dL Calcium (8.4-10.2) mg/dL Total Bilirubin (0.2-1.3) mg/dL AST (14-36) IU/L ALT (<35) IU/L Alkaline Phosphatase (38-126) U/L Total Creatine Kinase Cancelled (30-135) U/L CK-MB (CK-2) CK-MB (CK-2) Rel Index Troponin I (0.01-0.034) ng/mL Total Protein (6.3-8.2) g/dL Albumin (3.5-5.0) g/dL Globulin (1.7-4.1) g/dL Albumin/Globulin Ratio (1.0-2.8) Blood Type Cancelled ECG Data Attestation: I personally reviewed and interpreted this ECG as follows: Interpretation: The patient's EKG obtained on November 20 at 1:18 p.m.: 1 9 reveals a normal sinus rhythm with normal intervals. [place] is normal. Ventricular rate is 96. There are no acute diagnostic ST or T-wave changes. The EKG looks normal. There are no T-wave inversions and no appreciable Q-waves. 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 You need to be recheck. If the pain becomes worse you develop dizziness and feel like you are going to pass out. Developed fever or cough, or severe shortness of breath he needs to return to the emergency department for further evaluation. For pain and discomfort you can take Tylenol 500 mg every 4 hours or 1 g every 6 hours. Prescriptions: No Action albuterol sulfate [ProAir HFA] 90 mcg/actuation HFA aerosol inhaler 2 puff INHALATION Q4H PRN (Reason: Shortness Of Breath) RF: 0 Referrals: Glynn Ricardo MD [Primary Care Provider] -
--- NOTE | 2019-11-20 13:50 | DI.RAD.S_ITS ---
PROCEDURE: XR CHEST 1V INDICATIONS: with left sided chest pain TECHNIQUE: One view of the chest was acquired. COMPARISON: [facility], , CHEST 2 VIEW, 03/05/2017, 6:44. FINDINGS: Surgical changes and devices: None. Lungs and pleura: Slight patchy appearance is present in the right base. Mediastinum: Mediastinal contours appear normal. Heart size is normal. Bones and chest wall: No suspicious bony lesions. Overlying soft tissues appear unremarkable. IMPRESSION: Slight patchy right basilar opacity possibly related to atelectasis and/or developing airspace disease such as pneumonia. Dictated by: Lesly Ruiz M.D. on 11/20/2019 at 14:12 Approved by: Lesly Ruiz M.D. on 11/20/2019 at 14:13
[2019-11-20 14:02] LABS: Add Manual Diff / Slide Review NO; Basophils Absolute Auto 0 /uL (0-100); Basophils Percent Auto 0.4 % (0-2); Eosinophils Absolute Auto 200 /uL (0-450); Hematocrit 31.8 % (36-46); Hemoglobin 10.8 g/dL (12.0-16.0); Lymphocytes Absolute Auto 1700 /uL (1100-4500); Lymphocytes Percent Auto 22.5 % (25-40); Mean Corpuscular HGB Conc 33.8 % (30-36); Mean Corpuscular Hemoglobin 29.3 PG (26-34); Mean Corpuscular Volume 86.5 fL (80-100); Monocytes Absolute Auto 700 /uL (0-900); Monocytes Percent Auto 9.6 % (3-14); Neutrophils Absolute Auto 5100 /uL (1500-7000); Neutrophils Percent Auto 65.5 % (50-75); Platelet Count 196 X10^3/uL (150-400); Red Blood Cell Count 3.68 X10^6/uL (4.0-5.2); Red Cell Distribution Width 12.5 % (11.6-14.8); White Blood Cell Count 7.7 X10^3/uL (4.5-11.0)
[2019-11-20 14:10] LABS: Prothrombin Time 11.3 SECONDS (10.1-12.7)
[2019-11-20 14:13] LABS: Alanine Aminotransferase 19 IU/L (<35); Albumin 3.6 g/dL (3.5-5.0); Albumin Globulin Ratio 1.1 (1.0-2.8); Alkaline Phosphatase 84 U/L (38-126); Aspartate Aminotransferase 18 IU/L (14-36); Bilirubin Total 0.4 mg/dL (0.2-1.3); Blood Urea Nitrogen 9 mg/dL (7-17); Calcium 9.2 mg/dL (8.4-10.2); Carbon Dioxide 21 mmol/L (22-32); Chloride 105 mmol/L (98-107); Creatine Kinase 79 U/L (30-135); Estimated Glomerular Filt Rate > 60.0 mL/min (>60); Globulin 3.2 g/dL (1.7-4.1); Glucose 100 mg/dL (70-100); HEMOLYSIS < 15 (0-50); PTT Partial Thromboplastin Tim 26 SECONDS (26.4-36.2); Potassium 3.9 mmol/L (3.4-5.1); Sodium 136 mmol/L (137-145); Total Protein 6.8 g/dL (6.3-8.2)
[2019-11-20 14:21] VITALS: BP 118/57; PULSE 91; RESP 18; O2SAT 99
[2019-11-20 14:25] LABS: Troponin I < 0.012 ng/mL (0.01-0.034)
[2019-11-20 14:27] LABS: Erythrocyte Sedimentation Rate 41 MM/HR (0-20)
[2019-11-20] MEDS: ACETAMINOPHEN 325 MG TABLET 975 MG PO (16:07)
--- NOTE | 2019-11-20 16:07 | PC.NURSE ---
Please see frequent vital sign print out for full vital signs.
[2019-11-20 16:13] VITALS: BP 110/62; PULSE 88; RESP 20; O2SAT 100
== END 2019-11-20 16:14 | disposition home or self-care (01) ==
PROVIDERS: Emergency Medicine; Emergency Provider Emergency Medicine
DX: O26.893 Other specified pregnancy related conditions, third trimester (principal); R07.89 Other chest pain; Z3A.28 28 weeks gestation of pregnancy
CPT/HCPCS: 36415; 71045; 80053; 82550; 84484; 85025; 85610; 85651; 85730; 93005; 99284; 99285

== ENCOUNTER 2021-01-11 23:41 | Observation (INO) | payer OTHER, SELFPAY ==
[2021-01-11 23:50] VITALS: BP 118/69; PULSE 79; RESP 17; TEMP 37.1; O2SAT 97; BMI 34.4
[2021-01-12] VITALS (22 sets, daily range): BP systolic 105–129; BP diastolic 51–83; PULSE 61–88; RESP 12–18; TEMP 36.1–37.6; O2SAT 94–99; BMI 34.7
--- NOTE | 2021-01-12 | PATH_ITS ---
[facility] Accession Number: [id number] . 01 Material submitted: . appendix - APPENDIX . 01 Clinical history: . ABDOMINAL AND BACK PAIN . 02 Diagnosis: Appendix, Appendectomy: Acute appendicitis with serositis. No evidence of neoplasm. MRV 01/16/2021 1000 Local . 02 Electronically signed: . Vahid Portillo MD, PhD, Pathologist NPI- [id number] . 01 Gross description: . The specimen is received in formalin, labeled appendix, and consists of a 6.2 cm in length by 1.0 cm in diameter vermiform appendix with attached saba-yellow lobulated mesoappendix measuring 5.6 x 2.0 x 1.2 cm. The serosa is saba-pink and smooth with focal areas of purulent exudate near the tip. Sectioning reveals a saba mucosa and a lumen measuring 0.4 cm in diameter. [employer] sections are submitted, to include the margin (blue), central cross-sections, and bisected tip in cassettes A1-A2. ([id number]) /[facility] 01/14/2021 1523 Local . 02 Pathologist provided ICD-10: K35.80 . 02 CPT . 664818 Performed at: 01 [facility] [address] [facility], [place], [place] [id number] MD Aj Grvoer MD Phone: [phone] Performed at: 02 [facility] [place] [address] [place], [place] [id number] MD Rosie Chauhan MD Phone: [phone]
--- NOTE | 2021-01-12 00:17 | DI.CT.S_ITS ---
PROCEDURE: CT ABDOMEN PELVIS W CON INDICATIONS: Generalized abdominal pain with nausea TECHNIQUE: After the administration of intravenous contrast, 5 mm thick sections acquired from the diaphragm to the symphysis. 5 mm coronal and sagittal reformats were acquired. For radiation dose reduction, the following was used: automated exposure control, adjustment of mA and/or kV according to patient size. COMPARISON: None. FINDINGS: Image quality: Excellent. ABDOMEN: Lung bases: Lung bases are clear. Heart size is normal. Solid organs: Liver is normal in size and enhancement. Gallbladder is unremarkable. Biliary system is non dilated. Pancreas enhances normally. Spleen is normal in size and enhancement. No adrenal nodules. Kidneys demonstrate normal size and enhancement, without hydronephrosis. Peritoneum and bowel: Bowel loops demonstrate normal wall thickness and caliber. No free fluid or air. The appendix is dilated up to 9 mm in diameter. There is periappendiceal inflammatory stranding. No evidence for perforation or abscess formation. Nodes and vessels: No retroperitoneal or mesenteric adenopathy by size criteria. Aorta and inferior vena cava are normal in size. Miscellaneous: No ventral hernias. PELVIS: Genitourinary: Urinary bladder wall thickness appears normal for degree of distension. Reproductive organs are unremarkable as imaged. Miscellaneous: No inguinal hernias. No pelvic adenopathy. Bones: No suspicious bony lesions. No acute vertebral body compression fractures. IMPRESSION: 1. Mild acute appendicitis. No evidence for perforation or abscess formation. Findings were discussed with Dr. Santana of the emergency department by the overnight radiologist at 1:32 a.m. No significant discrepancy with the crisis intervention specialist radiology preliminary report. Dictated by: Carlton Alatorre M.D. on 01/12/2021 at 7:14 Approved by: Carlton Alatorre M.D. on 01/12/2021 at 7:18
--- NOTE | 2021-01-12 00:17 | ED.GENADULT ---
HPI - General Adult <Sebastian Santana DO - Last Filed: 01/12/21 01:59> General Source: patient Mode of arrival: Ambulatory Limitations: no limitations History of Present Illness HPI narrative: Patient is a relatively healthy 30-year-old female here for evaluation of lower abdominal pain and also upper abdominal pain. States the symptoms started last evening. Has urinated since the onset of the symptoms but that did not seem to change her pain at all. She is not currently having any vaginal bleeding. Has not had a bowel movement since the onset of the symptoms. She thought that started gradually with that has worsened throughout the night. Has had some nausea but no vomiting. No fevers. Her last meal was at 1900 last evening. Has not tried anything for the symptoms prior to arrival Related Data Home Medications Medication Instructions Recorded Confirmed albuterol sulfate [ProAir HFA] 2 puff INHALATION Q4H PRN 11/20/19 01/12/21 Allergies Allergy/AdvReac Type Severity Reaction Status Date / Time amoxicillin [AMOXICILLIN] Allergy Intermediate Verified 06/06/18 02:59 Review of Systems <DO Darek Junior Last Filed: 01/12/21 01:59> Constitutional Constitutional: Denies fever(s) and Denies headache(s) ENT Ears, Nose, Mouth, and Throat: Denies headache(s) Cardiovascular Cardiovascular: Denies chest pain and Denies dyspnea Respiratory Respiratory: Denies dyspnea Gastrointestinal Gastrointestinal: Reports abdominal pain, Denies change in bowel habits, Reports nausea and Denies vomiting Genitourinary Genitourinary: Denies dysuria Genitourinary: Denies dysuria and Denies vaginal discharge Musculoskeletal Musculoskeletal: Reports back pain (Lower back pain) Integumentary/Breasts Skin/Breast: Denies lesions and Denies rash Neurologic Neurologic: Denies behavioral changes and Denies headache(s) Psychiatric Psychiatric: Denies behavioral changes Hematologic/Lymphatic On Anticoagulants: No Patient History <DO Darek Junior Last Filed: 01/12/21 01:59> Medical History Asthma Surgical History History of History of tonsillectomy Social History Smoking Status: Never smoker Smoking Status: Never smoker alcohol intake frequency: a few times a month Substance Use Type: does not use Exam <Sebastian Santana DO - Last Filed: 01/12/21 01:59> Initial Vital Signs Initial Vital Signs: Vital Signs Temperature 98.7 F 01/11/21 23:50 Pulse Rate 79 01/11/21 23:50 Respiratory Rate 17 01/11/21 23:50 Blood Pressure 118/69 01/11/21 23:50 Pulse Oximetry 97 01/11/21 23:50 Const General: cooperative and comfortable Limitations: mental status not altered HENMT Head: normal to inspection and normocephalic Resp Effort & Inspection: normal respiratory effort Auscultation: clear to auscultation bilaterally Cardio Rate: regular rate Rhythm: regular rhythm GI Inspection: non-distended Palpation: soft and tender (Lower abdomen) Back/Spine/Pelvis Back: CVA tenderness left Skin Lesions: no lesions Rashes: no rashes Neuro General: patient alert and patient awake Cognition: normal cognition Speech: speech normal Extrem General: capillary refill normal Psych Appearance: grossly normal and well kempt <Dominique Zavala MD - Last Filed: 01/12/21 02:26> Initial Vital Signs Initial Vital Signs: Vital Signs Temperature 98.7 F 01/11/21 23:50 Pulse Rate 79 01/11/21 23:50 Respiratory Rate 17 01/11/21 23:50 Blood Pressure 118/69 01/11/21 23:50 Pulse Oximetry 97 01/11/21 23:50 Course <Sebastian Santana DO - Last Filed: 01/12/21 01:59> Orders Ordered: ED Orders 01/11/21 23:51 Complete Blood Count AUTO DIFF Stat Comprehensive Metabolic Panel Stat Lipase Stat EKG-12 Lead Stat 01/12/21 00:17 CT abdomen pelvis w con Stat 01/12/21 01:32 COVID19 - 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) Stat 01/12/21 01:37 Consult to General Surgery Stat Sodium Chloride (Normal Saline 0.9%) 1,000 mls @ 125 mls/hr IV CONT RAMOS Last Admin: 01/12/21 01:44 Dose: 125 mls/hr Documented by: Ceftriaxone Sodium/Dextrose (Rocephin) 1 gm in 50 mls @ 100 mls/hr IV NOW ONE Stop: 01/12/21 02:14 Last Admin: 01/12/21 01:49 Dose: 100 mls/hr Documented by: Metronidazole (Flagyl) 500 mg in 100 mls @ 100 mls/hr IV NOW ONE Stop: 01/12/21 02:44 Discontinued Medications Sodium Chloride (Normal Saline 0.9%) 1,000 mls @ 1,000 mls/hr IV BOLUS ONE Stop: 01/12/21 01:16 Last Admin: 01/12/21 00:32 Dose: 1,000 mls/hr Documented by: CAMERON Morphine Sulfate (Morphine 4 Mg/Ml Inj) 4 mg IV NOW ONE Stop: 01/12/21 00:18 Last Admin: 01/12/21 00:27 Dose: 4 mg Documented by: CAMERON Ondansetron HCl (Ondansetron 4 Mg/2 Ml Inj) 4 mg IV NOW ONE Stop: 01/12/21 00:18 Last Admin: 01/12/21 00:28 Dose: 4 mg Documented by: CAMERON Vital Signs Vital signs: Vital Signs - 8 hr 01/11/21 23:50 Temperature 98.7 F Pulse Rate 79 Respiratory Rate 17 Blood Pressure 118/69 Pulse Oximetry 97 <Dominique Zavala MD - Last Filed: 01/12/21 02:26> Orders Ordered: ED Orders 01/11/21 23:51 Complete Blood Count AUTO DIFF Stat Comprehensive Metabolic Panel Stat Lipase Stat EKG-12 Lead Stat 01/12/21 00:17 CT abdomen pelvis w con Stat 01/12/21 01:32 COVID19 - 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) Stat 01/12/21 01:37 Consult to General Surgery Stat Sodium Chloride (Normal Saline 0.9%) 1,000 mls @ 125 mls/hr IV CONT RAMOS Last Admin: 01/12/21 01:44 Dose: 125 mls/hr Documented by: Ceftriaxone Sodium/Dextrose (Rocephin) 1 gm in 50 mls @ 100 mls/hr IV NOW ONE Stop: 01/12/21 02:14 Last Admin: 01/12/21 01:49 Dose: 100 mls/hr Documented by: Metronidazole (Flagyl) 500 mg in 100 mls @ 100 mls/hr IV NOW ONE Stop: 01/12/21 02:44 Discontinued Medications Sodium Chloride (Normal Saline 0.9%) 1,000 mls @ 1,000 mls/hr IV BOLUS ONE Stop: 01/12/21 01:16 Last Admin: 01/12/21 00:32 Dose: 1,000 mls/hr Documented by: CAMERON Morphine Sulfate (Morphine 4 Mg/Ml Inj) 4 mg IV NOW ONE Stop: 01/12/21 00:18 Last Admin: 01/12/21 00:27 Dose: 4 mg Documented by: CAMERON Ondansetron HCl (Ondansetron 4 Mg/2 Ml Inj) 4 mg IV NOW ONE Stop: 01/12/21 00:18 Last Admin: 01/12/21 00:28 Dose: 4 mg Documented by: CAMERON Vital Signs Vital signs: Vital Signs - 8 hr 01/11/21 23:50 Temperature 98.7 F Pulse Rate 79 Respiratory Rate 17 Blood Pressure 118/69 Pulse Oximetry 97 Medical Decision Making <Sebastian Santana DO - Last Filed: 01/12/21 01:59> Lab Data Lab results reviewed: Yes I reviewed the patient's lab results. Result diagrams: 01/12/21 00:20 01/12/21 00:20 Labs: Lab Results 01/12/21 01/12/21 Range/Units 00:20 00:20 WBC 13.4 H (4.5-11.0) X10^3/uL RBC 4.24 (4.0-5.2) X10^6/uL Hgb 12.5 (12.0-16.0) g/dL Hct 36.8 (36-46) % MCV 86.8 (80-100) fL MCH 29.4 (26-34) PG MCHC 33.9 (30-36) % RDW 13.4 (11.6-14.8) % Plt Count 255 (150-400) X10^3/uL Neut % (Auto) 79.0 H (50-75) % Lymph % (Auto) 13.1 L (25-40) % [place] % (Auto) 6.5 (3-14) % Eos % (Auto) 0.8 L (2-4) % Baso % (Auto) 0.6 (0-2) % Neut # (Auto) 30775 H (9833-5748) /uL Lymph # (Auto) 1700 (3797-6892) /uL [place] # (Auto) 900 (0-900) /uL Eos # (Auto) 100 (0-450) /uL Baso # (Auto) 100 (0-100) /uL Sodium 140 (137-145) mmol/L Potassium 3.9 (3.4-5.1) mmol/L Chloride 101 (98-107) mmol/L Carbon Dioxide 30 (22-32) mmol/L BUN 14 (7-17) mg/dL Creatinine 0.88 (0.52-1.04) mg/dL Estimated GFR > 60.0 (>60) mL/min BUN/Creatinine Ratio 15.9 (6-22) Glucose 111 H (70-100) mg/dL Calcium 9.6 (8.4-10.2) mg/dL Total Bilirubin 0.3 (0.2-1.3) mg/dL AST 16 (14-36) IU/L ALT 18 (<35) IU/L Alkaline Phosphatase 79 (38-126) U/L Total Protein 7.2 (6.3-8.2) g/dL Albumin 4.4 (3.5-5.0) g/dL Globulin 2.8 (1.7-4.1) g/dL Albumin/Globulin Ratio 1.6 (1.0-2.8) Lipase 94 (23-300) U/L Point of Care Testing Test Results Negative Urine Dip Bedside Urine Glucose Negative Bedside Urine Bilirubin - Negative Bedside Urine Ketone - Negative Urine Specific [place] 1.030 Bedside Urine Occult Blood +/- Bedside Urine pH 6.0 Bedside Urine Protein - Negative Bedside Urine Urobilinogen - Negative Bedside Urine Nitrite - Negative Bedside Urine Leukocytes - Negative Esterase Point of care testing: Point of Care Testing Test Results Negative Urine Dip Bedside Urine Glucose Negative Bedside Urine Bilirubin - Negative Bedside Urine Ketone - Negative Urine Specific [place] 1.030 Bedside Urine Occult Blood +/- Bedside Urine pH 6.0 Bedside Urine Protein - Negative Bedside Urine Urobilinogen - Negative Bedside Urine Nitrite - Negative Bedside Urine Leukocytes - Negative Esterase Imaging Data CT scan - abdomen/pelvis: Radiologist's Impression: Suspect mild appendicitis No free intraperitoneal air or fluid. Appendix measures 9 mm of thickness extends into the right pelvis from the iliac fossa. Minimal surrounding edema. ECG Data Attestation: I personally reviewed and interpreted this ECG as follows: Prior ECG tracings: not available for review Interpretation: Sinus rhythm Ventricular rate is 73 Normal axis Normal QRS Normal QTC No ST T wave changes MDM Narrative Medical decision making narrative: Patient's last meal was at 1900 on 01/11/2021. Has a leukocytosis and a CT scan suggestive of mild appendicitis. This does fit her clinical presentation. Patient is allergic to penicillin. Discussed the case with Dr. Zavala with General surgery who will admit for further evaluation and treatment. I did discuss the findings with the patient. She expressed understanding and agreement. <Dominique Zavala MD - Last Filed: 01/12/21 02:26> Lab Data Labs: Lab Results 01/12/21 01/12/21 Range/Units 00:20 00:20 WBC 13.4 H (4.5-11.0) X10^3/uL RBC 4.24 (4.0-5.2) X10^6/uL Hgb 12.5 (12.0-16.0) g/dL Hct 36.8 (36-46) % MCV 86.8 (80-100) fL MCH 29.4 (26-34) PG MCHC 33.9 (30-36) % RDW 13.4 (11.6-14.8) % Plt Count 255 (150-400) X10^3/uL Neut % (Auto) 79.0 H (50-75) % Lymph % (Auto) 13.1 L (25-40) % [place] % (Auto) 6.5 (3-14) % Eos % (Auto) 0.8 L (2-4) % Baso % (Auto) 0.6 (0-2) % Neut # (Auto) 49915 H (9564-2133) /uL Lymph # (Auto) 1700 (2301-6995) /uL [place] # (Auto) 900 (0-900) /uL Eos # (Auto) 100 (0-450) /uL Baso # (Auto) 100 (0-100) /uL Sodium 140 (137-145) mmol/L Potassium 3.9 (3.4-5.1) mmol/L Chloride 101 (98-107) mmol/L Carbon Dioxide 30 (22-32) mmol/L BUN 14 (7-17) mg/dL Creatinine 0.88 (0.52-1.04) mg/dL Estimated GFR > 60.0 (>60) mL/min BUN/Creatinine Ratio 15.9 (6-22) Glucose 111 H (70-100) mg/dL Calcium 9.6 (8.4-10.2) mg/dL Total Bilirubin 0.3 (0.2-1.3) mg/dL AST 16 (14-36) IU/L ALT 18 (<35) IU/L Alkaline Phosphatase 79 (38-126) U/L Total Protein 7.2 (6.3-8.2) g/dL Albumin 4.4 (3.5-5.0) g/dL Globulin 2.8 (1.7-4.1) g/dL Albumin/Globulin Ratio 1.6 (1.0-2.8) Lipase 94 (23-300) U/L Point of Care Testing Test Results Negative Urine Dip Bedside Urine Glucose Negative Bedside Urine Bilirubin - Negative Bedside Urine Ketone - Negative Urine Specific [place] 1.030 Bedside Urine Occult Blood +/- Bedside Urine pH 6.0 Bedside Urine Protein - Negative Bedside Urine Urobilinogen - Negative Bedside Urine Nitrite - Negative Bedside Urine Leukocytes - Negative Esterase Point of care testing: Point of Care Testing Test Results Negative Urine Dip Bedside Urine Glucose Negative Bedside Urine Bilirubin - Negative Bedside Urine Ketone - Negative Urine Specific [place] 1.030 Bedside Urine Occult Blood +/- Bedside Urine pH 6.0 Bedside Urine Protein - Negative Bedside Urine Urobilinogen - Negative Bedside Urine Nitrite - Negative Bedside Urine Leukocytes - Negative Esterase Discharge Plan Departure Patient Disposition: Admitted as Observation Clinical Impression: Acute appendicitis
[2021-01-12] MEDS: MORPHINE 4 MG/ML INJ IV (00:27)
[2021-01-12] MEDS: ONDANSETRON 4 MG/2 ML INJ IV (00:28)
[2021-01-12] MEDS: SODIUM CHLORIDE 0.9% 1,000 ML 1000 ML IV (00:32)
[2021-01-12 00:33] LABS: Add Manual Diff / Slide Review NO; Basophils Absolute Auto 100 /uL (0-100); Basophils Percent Auto 0.6 % (0-2); Eosinophils Absolute Auto 100 /uL (0-450); Eosinophils Percent Auto 0.8 % (2-4); Hematocrit 36.8 % (36-46); Hemoglobin 12.5 g/dL (12.0-16.0); Lymphocytes Absolute Auto 1700 /uL (1100-4500); Lymphocytes Percent Auto 13.1 % (25-40); Mean Corpuscular HGB Conc 33.9 % (30-36); Mean Corpuscular Hemoglobin 29.4 PG (26-34); Mean Corpuscular Volume 86.8 fL (80-100); Monocytes Absolute Auto 900 /uL (0-900); Monocytes Percent Auto 6.5 % (3-14); Neutrophils Absolute Auto 10600 /uL (1500-7000); Platelet Count 255 X10^3/uL (150-400); Red Blood Cell Count 4.24 X10^6/uL (4.0-5.2); Red Cell Distribution Width 13.4 % (11.6-14.8); White Blood Cell Count 13.4 X10^3/uL (4.5-11.0)
[2021-01-12 00:39] LABS: Alanine Aminotransferase 18 IU/L (<35); Albumin 4.4 g/dL (3.5-5.0); Albumin Globulin Ratio 1.6 (1.0-2.8); Alkaline Phosphatase 79 U/L (38-126); Aspartate Aminotransferase 16 IU/L (14-36); BUN Creatinine Ratio 15.9 (6-22); Bilirubin Total 0.3 mg/dL (0.2-1.3); Blood Urea Nitrogen 14 mg/dL (7-17); Calcium 9.6 mg/dL (8.4-10.2); Carbon Dioxide 30 mmol/L (22-32); Chloride 101 mmol/L (98-107); Estimated Glomerular Filt Rate > 60.0 mL/min (>60); Globulin 2.8 g/dL (1.7-4.1); Glucose 111 mg/dL (70-100); HEMOLYSIS < 15 (0-50); Lipase 94 U/L (23-300); Potassium 3.9 mmol/L (3.4-5.1); Sodium 140 mmol/L (137-145); Total Protein 7.2 g/dL (6.3-8.2)
[2021-01-12] MEDS: SODIUM CHLORIDE 0.9% 1,000 ML 125 ML IV (01:44)
[2021-01-12] MEDS: CEFTRIAXONE 1 GM/50 ML FROZ.PIGGY IV (01:49)
[2021-01-12] MEDS: metroNIDAZOLE 500 MG/100 ML PIGGYBACK 100 MG IV ×4 (02:03→20:35)
[2021-01-12 03:09] LABS: COVID19 - ADMIT (NP swab/PCR) Negative (Negative)
[2021-01-12] MEDS: OXYCODONE IR 5 MG TABLET PO ×5 (03:22→23:57)
[2021-01-12] MEDS: ACETAMINOPHEN 325 MG TABLET 650 MG PO ×2 (03:22→10:03)
--- NOTE | 2021-01-12 06:59 | PC.ADMIT ---
[email or web address] [facility] Admission Note: The patient,Luke Angel,30 y/o, was given written information regarding hospital policies, unit procedures and contact persons. Pt arrived to unit stable, VSS w/ mild elevation of temp, able to make needs known. No cardiovascular or respiratory distress noted. AOx4. COVID neg. Patient's smoking status: Never smoker. Vital Signs - 8 hr 01/11/21 23:50 01/12/21 02:17 01/12/21 02:18 Temperature 98.7 F Pulse Rate 79 85 Respiratory Rate 17 Blood Pressure 118/69 119/75 Pulse Oximetry 97 97 01/12/21 02:57 01/12/21 03:22 01/12/21 03:56 Temperature 99.6 F 99.6 F 98.6 F Pulse Rate 82 Respiratory Rate 16 Blood Pressure 129/76 Pulse Oximetry 99
[2021-01-12 07:26] LABS: Add Manual Diff / Slide Review NO; Basophils Absolute Auto 100 /uL (0-100); Eosinophils Absolute Auto 100 /uL (0-450); Eosinophils Percent Auto 0.5 % (2-4); Hematocrit 34.7 % (36-46); Hemoglobin 11.5 g/dL (12.0-16.0); Lymphocytes Absolute Auto 2400 /uL (1100-4500); Lymphocytes Percent Auto 21.4 % (25-40); Mean Corpuscular HGB Conc 33.2 % (30-36); Mean Corpuscular Volume 87.2 fL (80-100); Monocytes Absolute Auto 800 /uL (0-900); Monocytes Percent Auto 7.2 % (3-14); Neutrophils Absolute Auto 7800 /uL (1500-7000); Neutrophils Percent Auto 69.9 % (50-75); Platelet Count 245 X10^3/uL (150-400); Red Blood Cell Count 3.98 X10^6/uL (4.0-5.2); Red Cell Distribution Width 13.4 % (11.6-14.8); White Blood Cell Count 11.1 X10^3/uL (4.5-11.0)
[2021-01-12] MEDS: CIPROFLOXACIN 400 MG/200 ML PIGGYBACK 200 MG IV ×2 (07:43→21:57)
--- NOTE | 2021-01-12 07:43 | P.HP_ITS ---
History of Present Illness History of Present Illness Date Patient Seen: 01/12/21 Time Patient Seen: 07:43 Chief complaint: abdominal and back pain Narrative: This is a 30-year-old woman with history of obesity (BMI 34.8) and asthma, who came into the ER last night with 1 day right lower quadrant pain. Her CT scan, labs, and exam in the ER was consistent with acute appendicitis. She is admitted to the hospital, and has started having antibiotics. She says she feels slightly better now, but continues to have right lower quadrant pain. She denies any other significant medical problems. She has had 2 C sections. ROS: She denies nausea/vomiting. She is having subjective fevers. She denies dysuria, constipation, diarrhea. Thirteen system review is otherwise negative other than as mentioned below and in HPI. PE: GENERAL: Alert, comfortable. Moderately obese. Appears stated age. Answers questions promptly and appropriately. Vital signs noted. HENT: Normocephalic, atraumatic. Hearing intact. EYES: Conjunctiva pink, sclera white, no periorbital swelling. CARDIOVASCULAR: Regular rate. No pedal edema. RESPIRATORY: Non-tachypneic, breathing comfortably on room air. GASTROINTESTINAL: Abdomen soft and non-distended; positive Rovsing sign, focal right lower quadrant tenderness, well-healed scar, no palpable hernias masses GENITALURINARY: No flank tenderness. MUSCULOSKELETAL: Equal tone and mass bilaterally. SKIN: Warm, dry, soft, appropriate color for ethnicity. No other lesions, rashes, or wounds. NEURO: Alert and Oriented X 3. No gross sensory deficits, or cognitive issues. PSYCH: Appropriate affect and mood. Patient History Medical History (Updated 01/12/21 @ 07:46 by Dominique Zavala MD) Asthma Surgical History History of History of tonsillectomy Family & Social History Social History: household members spouse,children Prior Living Arrangements House Safety & Behavioral: Feels Safe in Current Yes Environment Been Physically Hurt or No Threatened By a Person Suicidal Ideation Description None Suicide Plan Description No Plan Tobacco & Substance use: Smoking Status Never smoker alcohol intake current alcohol intake frequency a few times a month Substance Use Type does not use Meds Home Medications and Allergies Home Medications Medication Instructions Recorded Confirmed Type albuterol sulfate [ProAir HFA] 2 puff INHALATION Q4H PRN 11/20/19 01/12/21 History venlafaxine 37.5 mg PO 01/12/21 History Allergies Allergy/AdvReac Type Severity Reaction Status Date / Time amoxicillin [AMOXICILLIN] Allergy Intermediate Verified 06/06/18 02:59 Exam Vital Signs (past 8 hours): - 01/11/21 23:50 01/12/21 02:17 01/12/21 02:18 Temperature 98.7 F Pulse Rate 79 85 Respiratory Rate 17 Blood Pressure 118/69 119/75 Pulse Oximetry 97 97 01/12/21 02:57 01/12/21 03:22 01/12/21 03:56 Temperature 99.6 F 99.6 F 98.6 F Pulse Rate 82 Respiratory Rate 16 Blood Pressure 129/76 Pulse Oximetry 99 Oxygen Delivery Method Room Air Objective Imaging CT scan - abdomen: Radiologist's impression: [address] [id number] Scan ReportSigned Patient: Luke Angel MMR#: [id number]: [id number]:[id number]/Sex: 30 / FDate of Service: 01/12/21Loc: [id number] Number: [id number] Procedure: CT abdomen pelvis w con Ordering Provider: Sebastian Santana D.O. PROCEDURE: CT ABDOMEN PELVIS W CON INDICATIONS: Generalized abdominal pain with nausea TECHNIQUE: After the administration of intravenous contrast, 5 mm thick sections acquired from the diaphragm to the symphysis. 5 mm coronal and sagittal reformats were acquired. For radiation dose reduction, the following was used: automated exposure control, adjustment of mA and/or kV according to patient size. COMPARISON: None. FINDINGS: Image quality: Excellent. ABDOMEN: Lung bases: Lung bases are clear. Heart size is normal. Solid organs: Liver is normal in size and enhancement. Gallbladder is unremarkable. Biliary system is non dilated. Pancreas enhances normally. Spleen is normal in size and enhancement. No adrenal nodules. Kidneys demonstrate normal size and enhancement, without hydronephrosis. Peritoneum and bowel: Bowel loops demonstrate normal wall thickness and caliber. No free fluid or air. The appendix is dilated up to 9 mm in diameter. There is periappendiceal inflammatory stranding. No evidence for perforation or abscess formation. Nodes and vessels: No retroperitoneal or mesenteric adenopathy by size criteria. Aorta and inferior vena cava are normal in size. Miscellaneous: No ventral hernias. PELVIS: Genitourinary: Urinary bladder wall thickness appears normal for degree of distension. Reproductive organs are unremarkable as imaged. Miscellaneous: No inguinal hernias. No pelvic adenopathy. Bones: No suspicious bony lesions. No acute vertebral body compression fractures. IMPRESSION: 1. Mild acute appendicitis. No evidence for perforation or abscess formation. Findings were discussed with Dr. Santana of the emergency department by the overnight radiologist at 1:32 a.m. No significant discrepancy with the graphic art sales representative radiology preliminary report. Dictated by: Carlton Alatorre M.D. on 01/12/2021 at 7:14 Approved by: Carlton Alatorre M.D. on 01/12/2021 at 7:18 Labs Result Diagrams: 01/12/21 07:17 01/12/21 00:20 Labs: Laboratory Results - last 24 hr 01/12/21 01/12/21 01/12/21 00:20 00:20 01:40 WBC 13.4 H RBC 4.24 Hgb 12.5 Hct 36.8 MCV 86.8 MCH 29.4 MCHC 33.9 RDW 13.4 Plt Count 255 Neut % (Auto) 79.0 H Lymph % (Auto) 13.1 L [place] % (Auto) 6.5 Eos % (Auto) 0.8 L Baso % (Auto) 0.6 Neut # (Auto) 15215 H Lymph # (Auto) 1700 [place] # (Auto) 900 Eos # (Auto) 100 Baso # (Auto) 100 Sodium 140 Potassium 3.9 Chloride 101 Carbon Dioxide 30 BUN 14 Creatinine 0.88 Estimated GFR > 60.0 BUN/Creatinine Ratio 15.9 Glucose 111 H Calcium 9.6 Total Bilirubin 0.3 AST 16 ALT 18 Alkaline Phosphatase 79 Total Protein 7.2 Albumin 4.4 Globulin 2.8 Albumin/Globulin Ratio 1.6 Lipase 94 SARS-CoV-2 (PCR) Negative 01/12/21 07:17 WBC 11.1 H RBC 3.98 L Hgb 11.5 L Hct 34.7 L MCV 87.2 MCH 29.0 MCHC 33.2 RDW 13.4 Plt Count 245 Neut % (Auto) 69.9 Lymph % (Auto) 21.4 L [place] % (Auto) 7.2 Eos % (Auto) 0.5 L Baso % (Auto) 1.0 Neut # (Auto) 7800 H Lymph # (Auto) 2400 [place] # (Auto) 800 Eos # (Auto) 100 Baso # (Auto) 100 Sodium Potassium Chloride Carbon Dioxide BUN Creatinine Estimated GFR BUN/Creatinine Ratio Glucose Calcium Total Bilirubin AST ALT Alkaline Phosphatase Total Protein Albumin Globulin Albumin/Globulin Ratio Lipase SARS-CoV-2 (PCR) Assessment & Plan Assessment and plan (1) Acute appendicitis: Status: Acute (2) Asthma: Status: Acute Assessment & Plan narrative: This is a 30-year-old woman with acute appendicitis, and history of obesity and asthma. I had a shayna discussion with her about the risks and benefits of surgery, and the option of antibiotic treatment. She bursa go ahead with surgery. I have told her that she may not get to the OR until late this evening, given that multiple emergency cases have been added on today. She says that she is okay with that. Risks and benefits of surgery was discussed including risk of bleeding, infection, damage to nearby structures, need for additional procedures, need for open appendectomy, bowel obstruction, hernia, need for prolonged hospital stay, need for prolonged healing. Patient desires to proceed with surgery Plan: NPO, IV fluids, IV antibiotics, as needed pain meds, antiemetics To OR this afternoon for laparoscopic possible open appendectomy COVID-19 COVID-19 status: Negative Result date/Date tested (Pos, Neg/Pending): 01/12/21 Time Spent With Patient Time with patient: 25 - 35 minutes Quality VTE Deep Vein Thrombosis/Pulmonary Embolism Present on Admission: No
--- NOTE | 2021-01-12 08:04 | PC.NURSE ---
Day shift: Pt refused SCd's this AM. Pt said I'll put them on after the surgery. Explained what the SCd's are for as well. Call light in reach. pt steady on her feet. In good spirits at this time. IV antibiotics infusing.
[2021-01-12] MEDS: SODIUM CHLORIDE 0.9% FLUSH 10 ML IV ×2 (09:56→20:39)
--- NOTE | 2021-01-12 10:58 | PC.NURSE ---
Day shift: Pt off unit for procedure (at 1100). Per Surgery RN Pt back in approx 2 hours.
[2021-01-12] MEDS: LACTATED RINGERS 1,000 ML 42 ML IV (11:06)
--- NOTE | 2021-01-12 12:08 | PC.NURSE ---
Day shift: Pt remains off of AC unit at this time (1210).
[2021-01-12] MEDS: BUPIVACAINE 0.25% W/ EPI (PF) 10 ML VIAL 60 ML INJ (12:29)
--- NOTE | 2021-01-12 12:32 | SUR.OPER ---
Supine on padded OR bed, head on pillow, Left arm padded and tucked at side, Right arm secured to padded arm board <90 degrees abduction, legs uncrossed, safety belt at thigh, tape over blanket over lower legs .
--- NOTE | 2021-01-12 13:03 | PM.OP.1 ---
Operative Date/Time/Diagnoses Date of procedure: 01/12/21 Time of procedure: 13:03 Pre-op diagnosis: Early acute appendicitis Post-op diagnosis: same Procedure & Clinicians Procedure: Laparoscopic appendectomy Same procedure as scheduled: Yes Indications: Early acute appendicitis Surgeon: Dominique Zavala Click Yes if Unassisted: Yes Anesthesia Type: General Operative Notes Findings: Early acute appendicitis, small amount of serosanguineous free fluid, no evidence of abscess or perforation Specimen(s): other (Appendix) Estimated Blood Loss (mL): 2 Blood products transfused: none Procedure in detail: The patient was brought into the operating room and placed supine on the OR table. Sequential compression devices were placed on both legs and turned on. Appropriate perioperative antibiotics were given prior to the start of surgery. General anesthesia was induced the patient was intubated. The left arm was tucked and the abdomen was prepped and draped in sterile fashion. Surgical time-out was conducted. Local anesthetic was injected under the skin just superior to the umbilicus and a 5 mm vertical incision was made at this site. The umbilical stalk was grasped with a Denise and elevated. A Veress needle was passed through the fascia into proper position. The position was tested with a saline drop test which was appropriate for intra-abdominal Veress needle placement. The abdomen was then insufflated in the usual fashion. Once insufflated to 15 mm Hg the Veress needle was removed and a 5 mm optical trocar was placed under direct vision using a 5 mm 30 degree scope. Once the camera was inside the abdomen I took a look around. There was no injury from port placement. Dense adhesions were seen of the omentum attached to the lower midline incisional scar. A second port was placed in the same fashion in the left lower quadrant. Ligasure was used to take down the adhesions. Once freed a small amount of serosanguinous fluid was seen pooled in the pelvis. The umbilical port was upsized to a 10-12 port. An additional port was placed in the suprapubic midilne in the same fashion. The appendix was identified and grasped with a toothed grasper. It was elevated, and the mesoappendix was taken down with Ligasure. Once the base of the appendix was dissected out, I was able to see where the appendix entered the cecum. The base of the appendix was soft and pliable. The mid and distal appendix were thickened and firm. Two endoloops were placed at the base of the appendix, and the appendix was divided above the endoloops using Ligasure. I then placed the appendix in an endocatch bag and removed it through the supraumibilcal port site. The serosanguinous fluid was suctioned out of the pelvis. The base of he appendix and the mesoappendix were hemostatic and the endoloops were secure and in good position. At this point an O vicryl on a [employer] suture passer was used to close the umbilical port site. Insufflation was then removed from the abdomen. Additional local anesthetic was given. A 3-0 Vicryl was used to close the subcutaneous layers, and 4-0 Monocryl was used to close the skin. Additional local anesthetic was infiltrated into each port site. Each port site was closed with 4-0 Monocryl, and sealed with Dermabond. This concluded the procedure. At this point the needle, sponge, and instrument counts were correct. The appendix was passed off the table for pathology. Patient was awakened from anesthesia and extubated. She was transferred to the postanesthesia care unit in stable condition. Complications: none Post-operative Condition: stable Disposition: PACU
[2021-01-12] MEDS: HYDROMORPHONE 2 MG INJ IV (13:20)
--- NOTE | 2021-01-12 14:04 | PC.NURSE ---
Day shift: Pt back on AC unit from PACU at approx 1400. Rated ABD pain 3/10. Denies any nausea. VS WNL. RA 98%. Agrees to not get OOB w/o help from staff. Call light in reach. Tolerating babita dave.
--- NOTE | 2021-01-12 14:07 | CM.IDA ---
Initial DCP Assessment Note Pt is a 30 yo female, resident of [place], dx w/acute appendicitis, and history of obesity and asthma. patient scheduled for a lap appy at 1100 w/Dr Zavala PCP: Glynn Ricardo Payer: Ezra Ruiz Reviewed chart, pt just back to the AC floor after surgery, will allow to rest at this time. Chart indicates patient has supportive spouse and h/o two C sections. Likely return home w/family when medically cleared. DCP team will follow closely for any DC needs or concerns that might arise. SACHA Abraham Discharge Planning/Care Management CM Discharge Assessment Start: 01/12/21 14:05 Freq: Status: Active Protocol: Document 01/12/21 14:05 BRANT (Rec: 01/12/21 14:07 BRANT [id number]) Discharge Planning Assessment Assigned Jig Box Operator SACHA Suero DPOA/Assigned Designee Name kSy Angel, spouse Contact Information [phone] Advance Directives? No History Provided By Medical Record Prior Living Arrangements House Household Members spouse,children Independent with ADL's Yes Is patient alert and oriented? Yes Additional Comment TBD
[2021-01-13] MEDS: SODIUM CHLORIDE 0.9% FLUSH 10 ML IV ×2 (02:17→09:07)
[2021-01-13] MEDS: metroNIDAZOLE 500 MG/100 ML PIGGYBACK 100 MG IV (02:17)
[2021-01-13 04:18] VITALS: BP 105/49; PULSE 59; RESP 16; TEMP 36.8; O2SAT 95
[2021-01-13 04:51] LABS: Add Manual Diff / Slide Review NO; Basophils Absolute Auto 0 /uL (0-100); Basophils Percent Auto 0.4 % (0-2); Eosinophils Absolute Auto 0 /uL (0-450); Hematocrit 34.5 % (36-46); Hemoglobin 11.4 g/dL (12.0-16.0); Lymphocytes Absolute Auto 900 /uL (1100-4500); Mean Corpuscular HGB Conc 33.1 % (30-36); Mean Corpuscular Hemoglobin 28.8 PG (26-34); Mean Corpuscular Volume 86.9 fL (80-100); Monocytes Absolute Auto 500 /uL (0-900); Monocytes Percent Auto 5.2 % (3-14); Neutrophils Absolute Auto 8000 /uL (1500-7000); Neutrophils Percent Auto 84.4 % (50-75); Platelet Count 260 X10^3/uL (150-400); Red Blood Cell Count 3.97 X10^6/uL (4.0-5.2); Red Cell Distribution Width 13.1 % (11.6-14.8); White Blood Cell Count 9.5 X10^3/uL (4.5-11.0)
[2021-01-13 05:07] LABS: BUN Creatinine Ratio 14.9 (6-22); Blood Urea Nitrogen 13 mg/dL (7-17); Calcium 8.9 mg/dL (8.4-10.2); Carbon Dioxide 28 mmol/L (22-32); Chloride 104 mmol/L (98-107); Estimated Glomerular Filt Rate > 60.0 mL/min (>60); Glucose 122 mg/dL (70-100); HEMOLYSIS < 15 (0-50); Potassium 4.3 mmol/L (3.4-5.1); Sodium 137 mmol/L (137-145)
[2021-01-13] MEDS: OXYCODONE IR 5 MG TABLET PO ×2 (05:40→12:39)
[2021-01-13 08:47] VITALS: BP 132/74; PULSE 64; RESP 16; TEMP 36.4; O2SAT 97
[2021-01-13] MEDS: VENLAFAXINE ER 37.5 MG CAP PO (09:06)
[2021-01-13] MEDS: ACETAMINOPHEN 325 MG TABLET 650 MG PO (09:06)
[2021-01-13 12:10] VITALS: BP 108/60; PULSE 71; RESP 16; O2SAT 98
--- NOTE | 2021-01-13 13:16 | CM.DPC ---
DCP: continued: Dr. Boykin was here and has ok'd pt for d/c to home. Went to check in with her and found her in room going over d/c paperwork with ROBBIE Montague. Pt will follow up with Dr. Zavala in clinic 01/25. P: home today. No d/c concerns are noted.
--- NOTE | 2021-01-13 13:59 | PC.NURSE ---
Day shift: Pt left unit and wanted to ambulate to car driven by her friend. Adilia HARDEN walked with her. Paperwork signed and all questions answered. The 3 lap sites remain CDI. Pt has all personal belongings. MD scripts sent to Pt's pharmacy by MD cummings.
--- NOTE | 2021-01-13 21:21 | PM.DS.1 ---
History of Present Illness History of Present Illness Chief complaint: abdominal and back pain Discharge Providers Provider Date of admission: 01/12/21 01:53 Discharge Date: 01/13/21 Primary care physician: Glynn Ricardo MD Discharge provider: Wojciech Boykin MD Summary Hospital Course Discharge Diagnosis: Acute appendicitis Depression chronic Asthma chronic treated with inhalers Obesity with a BMI of 34 Hospital Course: The patient was admitted overnight and hydrated and started on IV antibiotics. Her pain persisted and she opted to undergo a laparoscopic appendectomy which was accomplished without incident. At discharge she was tolerating a diet and afebrile and feeling much better than at the time of admission. She is discharged to follow-up with Dr. Zavala Exam Vital Signs (past 8 hours): Oxygen Delivery Method Room Air Oxygen Flow Rate 0 Narrative Exam Narrative: Patient underwent a laparoscopic appendectomy. Her wounds look fine. No cellulitis. No unusual tenderness. Vital signs noted. Objective Labs Result Diagrams: 01/13/21 04:30 01/13/21 04:30 Labs: Laboratory Results - last 24 hr 01/13/21 01/13/21 04:30 04:30 WBC 9.5 RBC 3.97 L Hgb 11.4 L Hct 34.5 L MCV 86.9 MCH 28.8 MCHC 33.1 RDW 13.1 Plt Count 260 Neut % (Auto) 84.4 H Lymph % (Auto) 10.0 L [place] % (Auto) 5.2 Eos % (Auto) 0.0 L Baso % (Auto) 0.4 Neut # (Auto) 8000 H Lymph # (Auto) 900 L [place] # (Auto) 500 Eos # (Auto) 0 Baso # (Auto) 0 Sodium 137 Potassium 4.3 Chloride 104 Carbon Dioxide 28 BUN 13 Creatinine 0.87 Estimated GFR > 60.0 BUN/Creatinine Ratio 14.9 Glucose 122 H Calcium 8.9 Phosphorus 4.0 Magnesium 2.0 PFSH Medical History Asthma Surgical History History of History of tonsillectomy Social History household members: spouse and children Smoking Status: Never smoker alcohol intake: current Discharge Plan Discharge Plan Patient Disposition: Home Provider Discharge Comment: Your appendix was removed laparoscopically. You will be prescribed a narcotic pain medication. You may also use ibuprofen or Aleve as well as Tylenol/ Acetaminophen for pain after surgery. Make sure you do not take more than 3000 mg of Acetaminophen per day from any source. There may be Acetaminophen in your prescription pain medication, cold medications or headache remedies. Using an NSAID such as ibuprofen or Aleve will help with inflammation. Do not take more than recommended. You may take it along with or instead of your prescribed pain medication. Make sure to take the stool softener to prevent constipation from the narcotic pain medication. If you are not able have a bowel movement 24 hours after surgery, or you feel constipated please take an additional laxative such as MiraLax or Senna. Avoid any straining on the toilet. Avoid heavy lifting, pulling, or pushing more than 10 lbs or doing other activities that strain the abdomen or increase the abdominal pressure such as sit-ups, core work outs, and attempt to prevent frequent coughing. If you have fevers, intractable nausea/vomiting, or intractable pain please call the doctor's office or if symptoms are severe come into the ER. If you call after hours please choose the option to contact the surgeon environmental analyst rather than leaving a message. Discharge orders & Medications Prescriptions: New docusate sodium 100 mg capsule 100 mg PO BID Qty: 20 RF: 0 oxycodone 5 mg tablet 5 mg PO Q6H PRN (Reason: post operative pain) Qty: 20 RF: 0 Continued venlafaxine 37.5 mg capsule,extended release 24hr 37.5 mg PO DAILY RF: 0 albuterol sulfate [ProAir HFA] 90 mcg/actuation HFA aerosol inhaler 2 puff INHALATION Q4H PRN (Reason: Shortness Of Breath) RF: 0 Follow up/Referrals: Glynn Ricardo MD [Primary Care Provider] - Dominique Zavala MD [Physician] - 01/25/21 9:00 am (if you need to reach a doctor call our office.) Diet/Activity/Treatments Diet: Diet as Tolerated Activity: Avoid driving a car, making important decisions, and operating heavy machinery while taking narcotic pain medications. Skin/Wound/Dressing Care Report to your healthcare provider any signs of infection, such as:: chills, fever, night sweats, increased pain, unusual drainage and unusual redness Visit Report/Discharge Packet Instructions: DI for an Appendectomy, DI for Laparoscopy, DI for Prescription Opioid Use, Stool Softeners, Oxycodone, [facility]: Wound Care Stand Alone Forms: Surgery Discharge Discharge Data Primary Care Provider: Glynn Ricardo Attending Provider: Dominique Zavala VTE Deep Vein Thrombosis/Pulmonary Embolism Present on Admission: No
== END 2021-01-13 14:01 | disposition home or self-care (01) ==
LOC: ED 01-12 01:33 → AC 01-12 01:54
PROVIDERS: Admitting Provider Surgery; Emergency Provider Emergency Medicine; Referring Provider Emergency Medicine; Visit Provider Surgery
PROC: 0DTJ4ZZ Resection of Appendix, Percutaneous Endoscopic Approach (ICD-10-PCS; CPT 44970; principal; 2021-01-12 12:30)
DX: K35.80 Unspecified acute appendicitis (principal); J45.909 Unspecified asthma, uncomplicated; E66.9 Obesity, unspecified; Z68.34 Body mass index [BMI] 34.0-34.9, adult; Z20.822 Contact with and (suspected) exposure to COVID-19
CPT/HCPCS: 44970; 36415; 74177; 80048; 80053; 81003; 81025; 83690; 83735; 84100; 85025; 87635; 93005; 93010; 96361; 96365; 96366; 96367; 96368; 96375; 99219; 99284; G0378; A9270; J0330; J0744; J1100; J1170; J1885; J2250; J2270; J2405; J2704; J3010; Q9967

== ENCOUNTER 2021-02-05 18:24 | Emergency (ER) | payer OTHER, SELFPAY ==
[2021-01-13 10:55] VITALS: BMI 34.7
[2021-02-05] VITALS (8 sets, daily range): BP systolic 111–146; BP diastolic 60–84; PULSE 92–117; RESP 13–23; TEMP 36.9; O2SAT 95–97; BMI 33.4
--- NOTE | 2021-02-05 18:37 | DI.RAD.S_ITS ---
PROCEDURE: XR CHEST 1V INDICATIONS: tachycardia TECHNIQUE: One view of the chest was acquired. COMPARISON: [facility], CR, XR CHEST 1V, 11/20/2019, 13:56. FINDINGS: Surgical changes and devices: None. Lungs and pleura: Lungs are clear. No pleural effusions or pneumothorax. Mediastinum: Mediastinal contours appear normal. Heart size is normal. Bones and chest wall: No suspicious bony lesions. Overlying soft tissues appear unremarkable. IMPRESSION: No acute cardiopulmonary abnormality. Dictated by: Fred Summers M.D. on 02/05/2021 at 19:00 Approved by: Fred Summers M.D. on 02/05/2021 at 19:00
[2021-02-05] MEDS: SODIUM CHLORIDE 0.9% 1,000 ML 150 ML IV (18:51)
[2021-02-05 18:58] LABS: Add Manual Diff / Slide Review NO; Basophils Absolute Auto 100 /uL (0-100); Basophils Percent Auto 1.1 % (0-2); Eosinophils Absolute Auto 300 /uL (0-450); Eosinophils Percent Auto 3.7 % (2-4); Hematocrit 38.5 % (36-46); Lymphocytes Absolute Auto 2600 /uL (1100-4500); Lymphocytes Percent Auto 28.1 % (25-40); Mean Corpuscular HGB Conc 33.9 % (30-36); Mean Corpuscular Hemoglobin 29.4 PG (26-34); Mean Corpuscular Volume 86.8 fL (80-100); Monocytes Absolute Auto 700 /uL (0-900); Monocytes Percent Auto 7.4 % (3-14); Neutrophils Absolute Auto 5500 /uL (1500-7000); Neutrophils Percent Auto 59.7 % (50-75); Platelet Count 238 X10^3/uL (150-400); Red Blood Cell Count 4.44 X10^6/uL (4.0-5.2); Red Cell Distribution Width 13.2 % (11.6-14.8); White Blood Cell Count 9.2 X10^3/uL (4.5-11.0)
--- NOTE | 2021-02-05 18:59 | ED.ARRPALP ---
HPI - Arrhythmia/Palpitations General Chief Complaint: Arrhythmia/Palpitations Stated Complaint: fast heart rate Time Seen by Provider: 02/05/21 18:37 Source: patient and EMS Mode of arrival: EMS Limitations: no limitations History of Present Illness HPI narrative: 30F nonsmoker with history of GERD and asthma presents by EMS with a chief complaint of high heart rate and palpitations that started this afternoon. She is not dizzy nor weak or lightheaded. She denies any chest pain or shortness of breath. She denies any dizziness, weakness or lightheadedness. She denies any recent travel, history of blood clot or cancer. She denies any recent trauma or injury. She denies any recent illness with nausea, vomiting, diarrhea. She states that her last menstrual cycle was a few weeks ago and slightly heavier than normal. She denies any dietary or medication change MD complaint: rapid heart beat, heart racing and palpitations Onset (ago): hour(s) Duration: now resolved Severity: mild Context: occurred during rest Associated symptoms: denies other symptoms Related Data Home Medications Medication Instructions Recorded Confirmed albuterol sulfate [ProAir HFA] 2 puff INHALATION Q4H PRN 11/20/19 01/24/21 venlafaxine 37.5 mg PO DAILY 01/12/21 01/24/21 Previous Rx's Medication Instructions Recorded docusate sodium 100 mg PO BID #20 cap 01/13/21 oxycodone 5 mg PO Q6H PRN #20 tab 01/13/21 Allergies Allergy/AdvReac Type Severity Reaction Status Date / Time amoxicillin [AMOXICILLIN] Allergy Intermediate Rash Verified 02/05/21 18:31 Review of Systems Constitutional Constitutional: Denies chills, Denies fatigue, Denies fever(s), Denies frequent falls, Denies lethargy and Denies weakness Eyes Eyes: Denies change in vision, Denies eye discharge, Denies irritation and Denies loss of vision ENT Ears, Nose, Mouth, and Throat: Denies change in voice, Denies dizziness, Denies neck pain, Denies sore throat and Denies throat swelling Cardiovascular Cardiovascular: Denies chest pain, Denies irregular heart rhythm, Denies lightheadedness, Reports palpitations, Denies dyspnea, Denies dyspnea on exertion and Denies orthopnea Respiratory Respiratory: Denies cough, Denies dyspnea, Denies dyspnea on exertion and Denies wheezing Gastrointestinal Gastrointestinal: Denies abdominal pain, Denies change in bowel habits, Denies diarrhea, Denies nausea and Denies vomiting Musculoskeletal Musculoskeletal: Denies neck pain and Denies numbness Integumentary/Breasts Skin/Breast: Denies pruritus, Denies erythema, Denies rash and Denies wounds Neurologic Neurologic: Denies behavioral changes, Denies confusion, Denies dizziness, Denies frequent falls, Denies loss of vision, Denies numbness and Denies weakness Psychiatric Psychiatric: Denies anxiety, Denies behavioral changes, Denies confusion, Denies depression, Denies homicidal ideation and Denies suicidal ideation Endocrine Endocrine: Denies fatigue, Denies flushing and Reports palpitations Hematologic/Lymphatic Hematologic/Lymphatic: Denies easy bruising Allergic/Immunologic Allergic/Immunologic: Denies urticaria, Denies throat swelling and Denies wheezing Patient History Medical History Acute appendicitis Asthma Surgical History History of History of tonsillectomy Social History household members: spouse and children Smoking Status: Never smoker alcohol intake: current Smoking Status: Never smoker alcohol intake frequency: holidays/special occasions only Substance Use Type: does not use Exam Narrative Exam Narrative: GENERAL: [30] year old patient appears stated age. Well-nourished, well-developed patient, in mild distress. HEAD: Atraumatic. Normocephalic. EYES: Pupils equal round and reactive. Extraocular motions intact. No scleral icterus. No injection or drainage. ENT: Nose without bleeding, purulent drainage. Throat without erythema, tonsillar hypertrophy or exudate. Airway patent. NECK: Trachea midline. Non tender CARDIOVASCULAR: Tachycardic but regular rhythm without murmurs, gallops, or rubs. RESPIRATORY: Clear to auscultation. Breath sounds equal bilaterally. No wheezes, rales, or rhonchi. GASTROINTESTINAL: Abdomen soft, non-tender, nondistended. EXTREMITIES: No edema or joint tenderness. BACK: Nontender without deformity or crepitance. No flank tenderness. NEURO: AOx3. SKIN: No rash or erythema of visible areas Initial Vital Signs Initial Vital Signs: Vital Signs Temperature 98.5 F 02/05/21 18:31 Pulse Rate 115 H 02/05/21 18:31 Respiratory Rate 18 02/05/21 18:31 Blood Pressure 129/79 02/05/21 18:31 Pulse Oximetry 97 02/05/21 18:31 Course Orders Ordered: ED Orders 02/05/21 18:37 XR chest 1V Stat EKG-12 Lead Stat 02/05/21 18:50 Basic Metabolic Panel Stat Complete Blood Count AUTO DIFF Stat D Dimer Stat Magnesium Stat Thyroid Stimulating Hormone Stat Troponin & CK Cardiac Panel Stat Discontinued Medications Sodium Chloride (Normal Saline 0.9%) 1,000 mls @ 150 mls/hr IV CONT RAMOS Last Infusion: 02/05/21 21:40 Dose: 0 mls/hr Documented by: Infusion: 02/05/21 20:45 Dose: 999 mls/hr Documented by: Admin: 02/05/21 18:51 Dose: 150 mls/hr Documented by: JOSE Vital Signs Vital signs: Vital Signs - 8 hr 02/05/21 18:31 02/05/21 18:59 02/05/21 19:00 Temperature 98.5 F Pulse Rate 115 H 112 H 117 H Pulse Rate [Orthostatic Lying] Pulse Rate [Orthostatic Sitting] Pulse Rate [Orthostatic Standing] Respiratory Rate 18 13 23 Blood Pressure 129/79 138/65 132/60 Blood Pressure [Orthostatic Lying] Blood Pressure [Orthostatic Sitting] Blood Pressure [Orthostatic Standing] Pulse Oximetry 97 95 97 02/05/21 19:30 02/05/21 20:00 02/05/21 20:30 Temperature Pulse Rate 104 H 109 H 99 H Pulse Rate [Orthostatic Lying] Pulse Rate [Orthostatic Sitting] Pulse Rate [Orthostatic Standing] Respiratory Rate 23 21 18 Blood Pressure 111/67 115/70 146/84 H Blood Pressure [Orthostatic Lying] Blood Pressure [Orthostatic Sitting] Blood Pressure [Orthostatic Standing] Pulse Oximetry 96 95 95 02/05/21 21:00 02/05/21 21:34 Temperature Pulse Rate 101 H Pulse Rate [Orthostatic Lying] 95 H Pulse Rate [Orthostatic Sitting] 92 H Pulse Rate [Orthostatic Standing] 96 H Respiratory Rate 19 Blood Pressure 145/73 H Blood Pressure [Orthostatic Lying] 125/71 Blood Pressure [Orthostatic Sitting] 131/75 Blood Pressure [Orthostatic Standing] 133/76 Pulse Oximetry 97 MDM - Arrhythmia/Palpitations Lab Data Result diagrams: 02/05/21 18:50 02/05/21 18:50 Labs: Lab Results 02/05/21 02/05/21 02/05/21 Range/Units 18:50 18:50 18:50 WBC 9.2 (4.5-11.0) X10^3/uL RBC 4.44 (4.0-5.2) X10^6/uL Hgb 13.0 (12.0-16.0) g/dL Hct 38.5 (36-46) % MCV 86.8 (80-100) fL MCH 29.4 (26-34) PG MCHC 33.9 (30-36) % RDW 13.2 (11.6-14.8) % Plt Count 238 (150-400) X10^3/uL Neut % (Auto) 59.7 (50-75) % Lymph % (Auto) 28.1 (25-40) % [place] % (Auto) 7.4 (3-14) % Eos % (Auto) 3.7 (2-4) % Baso % (Auto) 1.1 (0-2) % Neut # (Auto) 5500 (9751-0625) /uL Lymph # (Auto) 2600 (7393-2059) /uL [place] # (Auto) 700 (0-900) /uL Eos # (Auto) 300 (0-450) /uL Baso # (Auto) 100 (0-100) /uL D-Dimer 210 (<230) ng/mL Sodium 140 (137-145) mmol/L Potassium 3.7 (3.4-5.1) mmol/L Chloride 107 (98-107) mmol/L Carbon Dioxide 24 (22-32) mmol/L BUN 15 (7-17) mg/dL Creatinine 0.87 (0.52-1.04) mg/dL Estimated GFR > 60.0 (>60) mL/min BUN/Creatinine Ratio 17.2 (6-22) Glucose 94 (70-100) mg/dL Calcium 9.5 (8.4-10.2) mg/dL Magnesium 1.6 (1.6-2.3) mg/dL Total Creatine Kinase 181 H (30-135) U/L CK-MB (CK-2) < 0.22 (<2.37) ng/mL CK-MB (CK-2) Rel Index 0.1 L (1.5-5.0) % Troponin I < 0.012 (0.01-0.034) ng/mL TSH (0.47-4.68) uIU/mL 02/05/21 Range/Units 18:50 WBC (4.5-11.0) X10^3/uL RBC (4.0-5.2) X10^6/uL Hgb (12.0-16.0) g/dL Hct (36-46) % MCV (80-100) fL MCH (26-34) PG MCHC (30-36) % RDW (11.6-14.8) % Plt Count (150-400) X10^3/uL Neut % (Auto) (50-75) % Lymph % (Auto) (25-40) % [place] % (Auto) (3-14) % Eos % (Auto) (2-4) % Baso % (Auto) (0-2) % Neut # (Auto) (0849-8811) /uL Lymph # (Auto) (3643-1074) /uL [place] # (Auto) (0-900) /uL Eos # (Auto) (0-450) /uL Baso # (Auto) (0-100) /uL D-Dimer (<230) ng/mL Sodium (137-145) mmol/L Potassium (3.4-5.1) mmol/L Chloride (98-107) mmol/L Carbon Dioxide (22-32) mmol/L BUN (7-17) mg/dL Creatinine (0.52-1.04) mg/dL Estimated GFR (>60) mL/min BUN/Creatinine Ratio (6-22) Glucose (70-100) mg/dL Calcium (8.4-10.2) mg/dL Magnesium (1.6-2.3) mg/dL Total Creatine Kinase (30-135) U/L CK-MB (CK-2) (<2.37) ng/mL CK-MB (CK-2) Rel Index (1.5-5.0) % Troponin I (0.01-0.034) ng/mL TSH 1.34 (0.47-4.68) uIU/mL MDM Narrative Medical decision making narrative: Patient with unexplained tachycardia in the absence of other symptoms. Her evaluation is very reassuring after a L of fluid patient continues to feel great and has heart rate in the upper 80s. She has had no chest pain or shortness of breath and is not dizzy nor weak or lightheaded. She has been given return precautions and has had questions answered to her apparent satisfaction Discharge Plan Departure Patient Disposition: Home Clinical Impression: Sinus tachycardia Instructions: DI for Tachycardia Activity Restrictions/Additional Instructions: *You have been diagnosed with [tachycardia and palpitations. These have resolved with fluid suggesting perhaps an element of dehydration. There is no evidence of anemia, electrolyte problem, kidney trouble suspicion of blood clot or other.] *What to do: *Take medications as directed *Follow up with your primary care provider in 2-3 days, call for an appointment. Let them know you were seen in the Emergency Department and that we ask that you be seen in follow up *Return to ER if you should have any new, worsening or concerning symptoms Prescriptions: No Action venlafaxine 37.5 mg capsule,extended release 24hr 37.5 mg PO DAILY RF: 0 docusate sodium 100 mg capsule 100 mg PO BID Qty: 20 RF: 0 oxycodone 5 mg tablet 5 mg PO Q6H PRN (Reason: post operative pain) Qty: 20 RF: 0 albuterol sulfate [ProAir HFA] 90 mcg/actuation HFA aerosol inhaler 2 puff INHALATION Q4H PRN (Reason: Shortness Of Breath) RF: 0 Referrals: Celena Mahan DO [Primary Care Provider] -
[2021-02-05 19:09] LABS: BUN Creatinine Ratio 17.2 (6-22); Blood Urea Nitrogen 15 mg/dL (7-17); Calcium 9.5 mg/dL (8.4-10.2); Carbon Dioxide 24 mmol/L (22-32); Chloride 107 mmol/L (98-107); Creatine Kinase 181 U/L (30-135); Estimated Glomerular Filt Rate > 60.0 mL/min (>60); Glucose 94 mg/dL (70-100); HEMOLYSIS < 15 (0-50); Magnesium 1.6 mg/dL (1.6-2.3); Potassium 3.7 mmol/L (3.4-5.1); Sodium 140 mmol/L (137-145)
[2021-02-05 19:14] LABS: D Dimer 210 ng/mL (<230)
[2021-02-05 19:21] LABS: Troponin I < 0.012 ng/mL (0.01-0.034)
[2021-02-05 19:28] LABS: CKMB % Relative Index 0.1 % (1.5-5.0); Creatine Kinase MB < 0.22 ng/mL (<2.37)
[2021-02-05 19:56] LABS: Thyroid Stimulating Hormone 1.34 uIU/mL (0.47-4.68)
--- NOTE | 2021-02-05 21:35 | PC.NURSE ---
while walking around unit O2 98% and HR 89, no complaints or dizziness
== END 2021-02-05 21:43 | disposition home or self-care (01) ==
PROVIDERS: Emergency Provider Emergency Medicine; PCP Family Medicine; Referring Provider Family Medicine
DX: R00.0 Tachycardia, unspecified (principal)
CPT/HCPCS: 36415; 71045; 80048; 82550; 82553; 83735; 84443; 84484; 85025; 85379; 93005; 93010; 96360; 96361; 99284